=== PATIENT | male | born 1950 | race Caucasian/White ===

== ENCOUNTER 2018-01-19 21:28 | Emergency (ER) | payer MEDICARE ==
[~2018-01-19] VITALS: Ht 180.3 cm; Wt 104.3 kg
[~2018-01-19 21:28] MED LIST: LEVO500T69 PO; LRT10T; VITAMIN
--- OUTSIDE RECORDS SUMMARY | 2018-01-19 21:32 | XMS REPORT | Continuity of Care Document ---
Author Author [facility] Organization [facility] Address Unknown Phone Unavailable Allergies Active Description Code Type Severity Reaction Onset Reported/Identified Relationship to Patient Clinical Status Yes ANETHESIA MED ANETHESIA MED Mild N/A 06/30/2008 Medications There is no data. Problems Date Dx Coded Attending Type Code Diagnosis Diagnosed By 02/15/2013 ORIN WHEELER MD Ot 211.3 02/15/2013 ORIN WHEELER MD Ot 455.0 02/15/2013 ORIN WHEELER MD Ot 562.10 02/15/2013 ORIN WHEELER MD Ot V76.51 04/18/2014 Ot 719.06 04/18/2014 Ot 727.51 04/18/2014 Ot 753.6 04/18/2014 Ot 959.7 04/18/2014 Ot E000.8 04/18/2014 Ot E826.1 04/18/2014 ORIN WHEELER MD Ot V72.84 04/19/2014 Ot 719.06 04/19/2014 Ot 727.51 04/19/2014 Ot 753.6 04/19/2014 Ot 959.7 04/19/2014 Ot E000.8 04/19/2014 Ot E826.1 04/19/2014 ORIN WHEELER MD Ot V72.84 04/20/2014 OTHER, UNLISTED Ot 718.17 04/20/2014 OTHER, UNLISTED Ot 719.47 04/20/2014 OTHER, UNLISTED Ot V72.81 04/20/2014 OTHER, UNLISTED Ot 718.17 04/20/2014 OTHER, UNLISTED Ot 719.47 04/20/2014 OTHER, UNLISTED Ot V72.81 05/05/2014 OTHER, UNLISTED Ot 718.17 05/05/2014 OTHER, UNLISTED Ot 719.47 05/05/2014 OTHER, UNLISTED Ot V72.81 04/27/2015 ORIN WHEELER MD Ot V72.84 04/27/2015 OTHER, UNLISTED Ot 718.17 04/27/2015 OTHER, UNLISTED Ot 719.47 04/27/2015 OTHER, UNLISTED Ot V72.81 06/11/2015 OTHER, UNLISTED Ot M25.511 06/11/2015 OTHER, UNLISTED Ot M47.892 06/11/2015 OTHER, UNLISTED Ot M47.894 06/11/2015 OTHER, UNLISTED Ot M54.2 Procedures There is no data. Results There is no data. Encounters ACCT No. Visit Date/Time Discharge Status Pt. Type Provider Facility Loc./Unit Complaint [id number] 04/27/2015 15:42:00 04/27/2015 23:59:59 CLS Outpatient OTHER, UNLISTED [facility] RAD [id number] 09/19/2014 10:25:00 09/19/2014 23:59:59 CLS Preadmit MARIA MILLER MD [facility] REHAB [id number] 04/18/2014 08:34:00 04/18/2014 23:59:59 CLS Outpatient OTHER, UNLISTED [facility] CARD [id number] 02/15/2013 07:15:00 02/15/2013 10:52:00 DIS Outpatient ORIN WHEELER MD [facility] [id number] 02/11/2013 08:17:00 02/11/2013 23:59:59 CLS Outpatient ORIN WHEELER MD [facility] PREOP [id number] 09/25/2009 15:12:00 Document Registration [email or web address] 04/18/2014 08:34:50 ACT Document Registration
--- NOTE | 2018-01-19 21:41 | ED Upper Extremity ---
General Stated Complaint: GOUT Source: patient Exam Limitations: no limitations History of Present Illness Date Seen by Provider: Jan 19, 2018 Time Seen by Provider: 21:39 Initial Comments To ER with left wrist pain. This began earlier today. History of gout that has affected this wrist before. Onset: this afternoon Severity: moderate Pain/Injury Location: left wrist Method of Injury: fell Modifying Factors: Worse With Movement Allergies and Home Medications Allergies Uncoded Allergies: ANETHESIA MED (Allergy, Mild, 06/30/08) Home Medications No Active Prescriptions or Reported Meds Patient Home Medication List Home Medication List Reviewed: Yes Review of Systems Constitutional: see HPI EENTM: see HPI Respiratory: no symptoms reported Cardiovascular: no symptoms reported Genitourinary: no symptoms reported Musculoskeletal: see HPI Skin: no symptoms reported Past Mxxodwn-Meakvd-Ofphpm Hx Patient Social History Recent Foreign Travel: No Contact w/Someone Who Travel: No Immunizations Up To Date Date of Influenza Vaccine: Jan 27, 2013 Physical Exam Vital Signs Vital Signs - First Documented 01/19/18 21:32 Temp 98.5 Pulse 90 Resp 20 B/P (MAP) 129/75 (93) Pulse Ox 97 O2 Delivery Room Air Capillary Refill : Height, Weight, BMI Height: '" Weight: 230lbs. oz. kg; BMI Method: General Appearance: WD/WN, no apparent distress HEENT: PERRL/EOMI, normal ENT inspection Shoulder: normal inspection, non-tender Elbow/Forearm: normal inspection, non-tender, Left Wrist: Yes pain, Yes soft tissue tenderness (erythema), Yes swelling Hand: normal inspection, non-tender Neurologic/Tendon: normal sensation, normal motor functions Neurologic/Psychiatric: alert, normal mood/affect, oriented x 3 Skin: normal color, warm/dry Progress/Results/Core Measures Results/Orders Lab Results Laboratory Tests Test 01/19/18 21:40 Range/Units White Blood Count 12.8 H 4.3-11.0 10^3/uL Red Blood Count 5.22 4.35-5.85 10^6/uL Hemoglobin 15.9 13.3-17.7 G/DL Hematocrit 47 40-54 % Mean Corpuscular Volume 90 80-99 FL Mean Corpuscular Hemoglobin 31 25-34 PG Mean Corpuscular Hemoglobin Concent 34 32-36 G/DL Red Cell Distribution Width 13.0 10.0-14.5 % Platelet Count 229 130-400 10^3/uL Mean Platelet Volume 10.1 7.4-10.4 FL Neutrophils (%) (Auto) 78 H 42-75 % Lymphocytes (%) (Auto) 12 12-44 % Monocytes (%) (Auto) 9 0-12 % Eosinophils (%) (Auto) 1 0-10 % Basophils (%) (Auto) 0 0-10 % Neutrophils # (Auto) 9.9 H 1.8-7.8 X 10^3 Lymphocytes # (Auto) 1.5 1.0-4.0 X 10^3 Monocytes # (Auto) 1.1 H 0.0-1.0 X 10^3 Eosinophils # (Auto) 0.2 0.0-0.3 10^3/uL Basophils # (Auto) 0.0 0.0-0.1 10^3/uL Sodium Level 137 135-145 MMOL/L Potassium Level 4.1 3.6-5.0 MMOL/L Chloride Level 100 98-107 MMOL/L Carbon Dioxide Level 25 21-32 MMOL/L Anion Gap 12 5-14 MMOL/L Blood Urea Nitrogen 21 H 7-18 MG/DL Creatinine 1.23 0.60-1.30 MG/DL Estimat Glomerular Filtration Rate 59 BUN/Creatinine Ratio 17 Glucose Level 136 H 70-105 MG/DL Calcium Level 9.8 8.5-10.1 MG/DL My Orders Orders - LEEANN FULLER APRN Iv Heplock-Insert (Order) (01/19/18 21:36) Cbc With Automated Diff (01/19/18 21:36) Basic Metabolic Panel (01/19/18 21:36) Rx-Hydrocodone/Apap 5-325 Mg (Rx-Vicodin (01/19/18 21:45) Ketorolac Injection (Toradol Injection) (01/19/18 21:45) Uric Acid (01/19/18 22:01) Medications Given in ED Current Medications Medications Dose Ordered Sig/Hugh Route Start Time Stop Time Status Last Admin Dose Admin Acetaminophen/ Hydrocodone Bitart 1 ea Q4H PRN PO 01/19/18 21:45 01/19/18 21:55 1 EA Ketorolac Tromethamine 15 mg ONCE ONCE IVP 01/19/18 21:45 01/19/18 21:46 DC 01/19/18 21:55 15 MG Vital Signs/I&O 01/19/18 21:32 Temp 98.5 Pulse 90 Resp 20 B/P (MAP) 129/75 (93) Pulse Ox 97 O2 Delivery Room Air Departure Communication (Admissions) It is unclear whether this is gout or pseudogout. He will need follow-up with primary care or orthopedics for arthrocentesis of the wrist to evaluate for uric acid crystals or calcium pyrophosphate crystals. Impression Primary Impression: Monoarthritis, not elsewhere classified, left wrist Disposition: HOME, SELF-CARE Condition: Stable Departure-Patient Inst. Decision time for Depature: 21:41 Referrals: ORIN WHEELER MD (PCP) Primary Care Physician Patient Instructions: Gout (DC), Lifestyle Changes to Manage Gout Add. Discharge Instructions: 1. Follow-up with Dr. Wheeler tomorrow. Return to the emergency room for any concerns. 2. Use over the counter Naproxen 500mg (you can buy this off the shelf at [employer] or [employer]) orally twice daily but do not use for more than 2-3 day as this can worsen kidney function. Drink plenty of fluids over the next 2-3 days. Scripts No Active Prescriptions or Reported Meds Copy Copies To 1: ORIN WHEELER MD, PETER J APRN Jan 19, 2018 21:41
[2018-01-19] MEDS ORDERED: KETOROLAC 30 MG/ML VIAL IVP ONE (21:45)
[2018-01-19 21:50] LABS: BASOPHILS % (AUTO) 0 % (0-10); EOSINOPHILS # (AUTO) 0.2 10^3/uL (0.0-0.3); EOSINOPHILS % (AUTO) 1 % (0-10); HEMATOCRIT 47 % (40-54); HEMOGLOBIN 15.9 G/DL (13.3-17.7); LYMPHOCYTES # (AUTO) 1.5 X 10^3 (1.0-4.0); LYMPHOCYTES % (AUTO) 12 % (12-44); MEAN CORPUSCULAR HEMOGLOBIN 31 PG (25-34); MEAN CORPUSCULAR HGB CONC 34 G/DL (32-36); MEAN CORPUSCULAR VOLUME 90 FL (80-99); MEAN PLATELET VOLUME 10.1 FL (7.4-10.4); MONOCYTES # (AUTO) 1.1 X 10^3 (0.0-1.0); MONOCYTES % (AUTO) 9 % (0-12); NEUTROPHILS # (AUTO) 9.9 X 10^3 (1.8-7.8); NEUTROPHILS % (AUTO) 78 % (42-75); PLATELET COUNT 229 10^3/uL (130-400); RED BLOOD COUNT 5.22 10^6/uL (4.35-5.85); WHITE BLOOD COUNT 12.8 10^3/uL (4.3-11.0)
[2018-01-19] MEDS: RX-HYDROCODONE/APAP 5/325 MG #4 TAB PK PO PRN ×2 (21:55→22:28)
[2018-01-19 22:08] LABS: CALCIUM 9.8 MG/DL (8.5-10.1); CREATININE SERUM 1.23 MG/DL (0.60-1.30); POTASSIUM 4.1 MMOL/L (3.6-5.0)
[2018-01-19] MEDS ORDERED: COLCHICINE 0.6 MG (COLCRYS) TABLET PO ONE (22:15)
[2018-01-19 22:38] VITALS: BP 149/95
== END 2018-01-19 22:38 | disposition home or self-care (01) ==
LOC: EDUNIT# 21:28 → ER 21:29
DX: M13.132 Monoarthritis, not elsewhere classified, left wrist (principal); M10.9 Gout, unspecified; W19.XXXA Unspecified fall, initial encounter
CPT/HCPCS: 36415; 80048; 84550; 85025; 96374; 99283

== ENCOUNTER 2018-02-15 02:33 | Emergency (ER) | payer MEDICARE ==
[~2018-02-15] VITALS: Ht 180.3 cm; Wt 108.9 kg
--- OUTSIDE RECORDS SUMMARY | 2018-02-15 02:38 | XMS REPORT | Continuity of Care Document ---
Author Author [facility] Organization [facility] Address Unknown Phone Unavailable Allergies Active Description [...] Ot M47.894 06/11/2015 OTHER, UNLISTED Ot M54.2 01/19/2018 LEEANN FULLER APRN Ot M10.9 GOUT, UNSPECIFIED 01/19/2018 LEEANN FULLER APRN Ot M13.132 MONOARTHRITIS, NOT ELSEWHERE CLASSIFIED, 01/19/2018 LEEANN FULLER APRN Ot M25.532 PAIN IN LEFT WRIST 01/19/2018 LEEANN FULLER APRN Ot W19.XXXA UNSPECIFIED FALL, INITIAL ENCOUNTER 01/21/2018 LEEANN FULLER APRN Ot M10.9 GOUT, UNSPECIFIED 01/21/2018 LEEANN FULLER APRN Ot M13.132 MONOARTHRITIS, NOT ELSEWHERE CLASSIFIED, 01/21/2018 LEEANN FULLER APRN Ot M25.532 PAIN IN LEFT WRIST 01/21/2018 LEEANN FULLER APRN Ot W19.XXXA UNSPECIFIED FALL, INITIAL ENCOUNTER Procedures There is no data. Results Test Result Range Complete blood count (CBC) with automated white blood cell (WBC) differential - 01/19/18 21:40 Blood leukocytes automated count (number/volume) 12.8 10*3/uL 4.3-11.0 Blood erythrocytes automated count (number/volume) 5.22 10*6/uL 4.35-5.85 Venous blood hemoglobin measurement (mass/volume) 15.9 g/dL 13.3-17.7 Blood hematocrit (volume fraction) 47 % 40-54 Automated erythrocyte mean corpuscular volume 90 [foz_us] 80-99 Automated erythrocyte mean corpuscular hemoglobin (mass per erythrocyte) 31 pg 25-34 Automated erythrocyte mean corpuscular hemoglobin concentration measurement ( mass/volume) 34 g/dL 32-36 Automated erythrocyte distribution width ratio 13.0 % 10.0-14.5 Automated blood platelet count (count/volume) 229 10*3/uL 130-400 Automated blood platelet mean volume measurement 10.1 [foz_us] 7.4-10.4 Automated blood neutrophils/100 leukocytes 78 % 42-75 Automated blood lymphocytes/100 leukocytes 12 % 12-44 Blood monocytes/100 leukocytes 9 % 0-12 Automated blood eosinophils/100 leukocytes 1 % 0-10 Automated blood basophils/100 leukocytes 0 % 0-10 Blood neutrophils automated count (number/volume) 9.9 10*3 1.8-7.8 Blood lymphocytes automated count (number/volume) 1.5 10*3 1.0-4.0 Blood monocytes automated count (number/volume) 1.1 10*3 0.0-1.0 Automated eosinophil count 0.2 10*3/uL 0.0-0.3 Automated blood basophil count (count/volume) 0.0 10*3/uL 0.0-0.1 Whole blood basic metabolic panel - 01/19/18 21:40 Serum or plasma sodium measurement (moles/volume) 137 mmol/L 135-145 Serum or plasma potassium measurement (moles/volume) 4.1 mmol/L 3.6-5.0 Serum or plasma chloride measurement (moles/volume) 100 mmol/L 98-107 Carbon dioxide 25 mmol/L 21-32 Serum or plasma anion gap determination (moles/volume) 12 mmol/L 5-14 Serum or plasma urea nitrogen measurement (mass/volume) 21 mg/dL 7-18 Serum or plasma creatinine measurement (mass/volume) 1.23 mg/dL 0.60-1.30 Serum or plasma urea nitrogen/creatinine mass ratio 17 NRG Serum or plasma creatinine measurement with calculation of estimated glomerular filtration rate 59 NRG Serum or plasma glucose measurement (mass/volume) 136 mg/dL 70-105 Serum or plasma calcium measurement (mass/volume) 9.8 mg/dL 8.5-10.1 Serum or plasma uric acid measurement (mass/volume) - 01/19/18 21:40 Serum or plasma uric acid measurement (mass/volume) 6.7 mg/dL 2.6-7.2 Encounters ACCT No. Visit Date/Time Discharge Status Pt. Type Provider Facility Loc./Unit Complaint [id number] 01/19/2018 21:29:00 01/19/2018 22:38:00 DIS Emergency LEEANN FULLER APRN [facility] ER GOUT [id number] 04/27/2015 15:42:00 04/27/2015 23:59:59 CLS Outpatient OTHER, UNLISTED [facility] RAD [id number] 09/19/2014 10:25:00 09/19/2014 23:59:59 CLS Preadmit MARIA MILLER MD [facility] REHAB [id number] 04/18/2014 08:34:00 04/18/2014 23:59:59 CLS Outpatient OTHER, UNLISTED [facility] CARD [id number] 02/15/2013 07:15:00 02/15/2013 10:52:00 DIS Outpatient [facility] [id number] 02/11/2013 08:17:00 02/11/2013 23:59:59 CLS Outpatient ORIN WHEELER MD [facility] PREOP [id number] 02/26/2018 07:30:00 PEN Preadmit ORIN WHEELER MD [facility] ENDO RECTAL BLEEDING [id number] 09/25/2009 15:12:00 Document Registration [email or web address] 04/18/2014 08:34:50 ACT Document Registration
[2018-02-15] MEDS ORDERED: COLCHICINE 0.6 MG (COLCRYS) TABLET PO ONE (03:00)
[2018-02-15] MEDS ORDERED: PRD10T PO (03:27)
[2018-02-15] MEDS ORDERED: COLC0.6C3 PO (03:27)
[2018-02-15] MEDS ORDERED: ACHD5005 PO (03:27)
--- NOTE | 2018-02-15 03:27 | ED Upper Extremity ---
General Chief Complaint: General Problems/Pain Stated Complaint: GOUT Nursing Triage Note: AMBULATORY TO ED WITH C/O LEFT WRIST PAIN R/T GOUT. LAST SEEN HERE TWO WEEKS AGO. SAW DR. WHEELER, CHANGED DIET. NOW PAIN PAIN BACK AND WOKE HIM UP IN THE MIDDLE OF THE NIGHT. Nursing Sepsis Screen: No Definite Risk Source: patient History of Present Illness Date Seen by Provider: Feb 15, 2018 Time Seen by Provider: 02:45 Initial Comments C/O LEFT WRIST PAIN AND SWELLING FOR THE LAST FEW DAYS STATES HE IS HAVING A FLARE UP OF HIS GOUT WAS SEEN HERE 01/19/18 FOR THIS SAME PROBLEM AND WAS GIVEN COLCHICINE AND SYMPTOMS WENT AWAY COMPLETELY. FOLLOWED UP WITH DR. WHEELER AFTER THAT VISIT AND NO FURTHER TREATMENT WAS NEEDED STATES HIS FIRST HAD GOUT MANY YEARS AGO, BUT HAS NOT HAD ANY SIGNIFICANT PROBLEMS UNTIL THE LAST FEW WEEKS STATES WHEN HE WAS HERE BEFORE IT WAS MUCH WORSE --MORE PAIN, MORE SWELLING PT STATES PAIN WOKE HIM UP AT 0030 THIS AM HAS NOT TAKEN ANYTHING FOR PAIN AT ANY TIME STATES HE HAS BEEN INCREASING HIS WATER INTAKE AND WATCHING HIS DIET--NO RED MEATS., ETC. NO UNUSUAL ACTIVITIES OR INJURIES BUT PT LIFTS BOXES/OBJECTS ALL DAY FOR WORK. NO PARESTHESIAS OR MOTOR DEFICITS PT IS RIGHT HANDED. PCP: DR. WHEELER Allergies and Home Medications Allergies Uncoded Allergies: ANETHESIA MED (Allergy, Mild, 06/30/08) Home Medications Colchicine 0.6 Mg Capsule, 0.6 MG PO UD Prescribed by: CARMELA ALBRIGHT on 02/15/18326 Hydrocodone Bit/Acetaminophen 1 Tab Tab, 1-2 EACH PO Q6H PRN for PAIN-MODERATE Prescribed by: CARMELA ALBRIGHT on 02/15/18326 Prednisone 10 Mg Tab, 40 MG PO DAILY Prescribed by: CARMELA ALBRIGHT on 02/15/18326 Patient Home Medication List Home Medication List Reviewed: Yes Review of Systems Constitutional: no symptoms reported Respiratory: no symptoms reported Cardiovascular: no symptoms reported Musculoskeletal: see HPI Skin: no symptoms reported Psychiatric/Neurological: No Symptoms Reported Past Zbwhrdw-Dasiqx-Ckyyvg Hx Patient Social History Alcohol Use: Denies Use Recreational Drug Use: No Smoking Status: Never a Smoker 2nd Hand Smoke Exposure: No Recent Foreign Travel: No Contact w/Someone Who Travel: No Recent Infectious Disease Expo: No Recent Hopitalizations: No Immunizations Up To Date Date of Influenza Vaccine: Feb 01, 2018 Seasonal Allergies Seasonal Allergies: No Past Medical History Surgeries: Yes (Bilateral Knee Replacement, R ankle repair) Appendectomy, Joint Replacement, Orthopedic Respiratory: No Cardiac: Yes Deep Vein Thrombosis Neurological: No Genitourinary: No Gastrointestinal: No Musculoskeletal: Yes Fractures, Gout Endocrine: No HEENT: No Cancer: No Psychosocial: No Integumentary: No Blood Disorders: No Physical Exam Vital Signs Vital Signs - First Documented 02/15/18 02:40 Temp 96.7 Pulse 85 Resp 14 B/P (MAP) 149/117 (128) Capillary Refill : Less Than 3 Seconds Height, Weight, BMI Height: 5'11.00" Weight: 240lbs. oz. 108.177719ph; BMI Method:Stated General Appearance: WD/WN, no apparent distress, other (ARRIVES WEARING A VELCRO WRIST SPLINT--IS VERY TIGHT ON WRIST AND HAND WITH SOME COOLNESS AND PALENESS TO FINGERS--QUICK RETURN OF PINK COLOR/GOOD CAPILLARY REFILL AND WARMTH WITH REMOVAL OF SPLINT. ) Shoulder: non-tender Elbow/Forearm: non-tender Wrist: Yes bone tenderness (AT WRIST), Yes limited ROM (AT WRIST ), Yes pain, Yes soft tissue tenderness, Yes swelling (AND MILD ERYTHEMA TO LEFT WRIST AND HAND. ) Hand: Left, swelling Neurologic/Tendon: normal sensation, normal motor functions, normal tendon functions Neurologic/Psychiatric: yarn examiner skeins II-XII nml as tested, no motor/sensory deficits, alert, normal mood/affect, oriented x 3 Skin: normal color, warm/dry, other (ERYTHEMA TO LEFT HAND AND WRIST NOTED ABOVE) DISTAL MOTOR/SENSORY/VASCULAR INTACT Progress/Results/Core Measures Results/Orders My Orders Orders - CARMELA ALBRIGHT DO Wrist, Left, 3 Views Or More (02/15/18 02:58) Colchicine Tablet (Colcrys Tablet) (02/15/18 03:00) Prednisone Tablet (Deltasone Tablet) (02/15/18 03:30) Medications Given in ED Current Medications Medications Dose Ordered Sig/Hugh Route Start Time Stop Time Status Last Admin Dose Admin Colchicine 1.2 mg ONCE ONCE PO 02/15/18 03:00 02/15/18 03:01 DC 02/15/18 03:18 1.2 MG Vital Signs/I&O 02/15/18 02:40 Temp 96.7 Pulse 85 Resp 14 B/P (MAP) 149/117 (128) Blood Pressure Mean: 128 Progress Progress Note : Progress Note OFFERED PAIN MEDICATIONS, AND PT STATES HE DOES NOT NEED THEM, JUST WANTS COLCHICINE. AGREES TO PREDNISONE AND RX FOR PAIN MEDICATIONS IF NEEDED. Diagnostic Imaging Comments XRAYS LEFT WRIST--DEGENERATIVE CHANGES TO WRIST JOINTS, PENDING RADIOLOGIST REVIEW Reviewed: Reviewed by Me Departure Impression Primary Impression: gout flare left wrist Disposition: HOME, SELF-CARE Condition: Stable Departure-Patient Inst. Referrals: ORIN WHEELER MD (PCP/Family) Primary Care Physician Patient Instructions: Gout (DC), Lifestyle Changes to Manage Gout Add. Discharge Instructions: LOTS OF WATER LOW PURINE DIET WEAR SPLINT NEEDED FOR COMFORT--WIGGLE FINGERS FREQUENTLY ICE TO AREA AT 20 MINUTE INTERVALS FOLLOW UP WITH DR. WHEELER IN 2-3 DAYS IF NO BETTER All discharge instructions reviewed with patient and/or family. Voiced understanding. Scripts Hydrocodone Bit/Acetaminophen (Hydrocodone/Acetaminophen 5/325mg Tablet) 1 Tab Tab 1-2 EACH PO Q6H PRN for PAIN-MODERATE MDD 10, #10 TAB Prov: CARMELA ALBRIGHT DO 02/15/18 Prednisone (Prednisone) 10 Mg Tab 40 MG PO DAILY, #12 TAB Prov: CARMELA ALBRIGHT DO 02/15/18 Colchicine (Colchicine) 0.6 Mg Capsule 0.6 MG PO UD, #10 CAP Prov: CARMELA ALBRIGHT DO 02/15/18 CARMELA ALBRIGHT DO Feb 15, 2018 03:27
[2018-02-15] MEDS ORDERED: predniSONE 20 MG TAB PO ONE (03:30)
[2018-02-15 03:48] VITALS: BP 149/117
--- NOTE | 2018-02-15 07:20 | Diagnostic Imaging Report ---
EXAMINATION: Left wrist, 3 views. COMPARISON: None. HISTORY: 67-year-old male, left wrist pain for 2 weeks. History of gout. FINDINGS: There is moderate to severe radiocarpal joint space loss. There is chondrocalcinosis in the region of the triangular fibrocartilage complex. There is moderate to severe joint space loss at the first carpometacarpal joint. There is joint space loss with small hook osteophytes at the second and third metacarpophalangeal joints with chondrocalcinosis adjacent to these articulations. There is no identified acute fracture. There is no radiopaque foreign body. Bone mineralization appears to be within normal limits. There is no identified bone erosion. IMPRESSION: 1. Chondrocalcinosis with moderate arthritis at the second and third metacarpophalangeal joints demonstrating hooked osteophytes. 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 2. 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 3. Moderate to severe radiocarpal arthritis. Dictated by: Dictated on workstation # [id number]
== END 2018-02-15 03:48 | disposition home or self-care (01) ==
LOC: EDUNIT# 02:33 → ER 02:35
DX: M10.9 Gout, unspecified (principal); Z88.4 Allergy status to anesthetic agent; Z79.52 Long term (current) use of systemic steroids; Z96.653 Presence of artificial knee joint, bilateral; Z90.49 Acquired absence of other specified parts of digestive tract; Z86.718 Personal history of other venous thrombosis and embolism
CPT/HCPCS: 73110

== ENCOUNTER 2018-02-19 05:29 | Emergency (ER) | payer MEDICARE ==
[~2018-02-19] VITALS: Ht 180.3 cm; Wt 108.9 kg
[~2018-02-19 05:29] MED LIST changes: +ACHD5005 PO; +COLC0.6C3 PO; +PRD10T PO
--- OUTSIDE RECORDS SUMMARY | 2018-02-19 05:36 | XMS REPORT | Continuity of Care Document ---
Author Author [facility] Organization [facility] Address Unknown Phone Unavailable Allergies Active [...] APRN Ot W19.XXXA UNSPECIFIED FALL, INITIAL ENCOUNTER 02/15/2018 CARMELA ALBRIGHT DO Ot M10.9 GOUT, UNSPECIFIED 02/15/2018 CARMELA ALBRIGHT DO Ot M25.432 EFFUSION, LEFT WRIST 02/15/2018 CARMELA ALBRIGHT DO Ot Z79.52 HALFWAY (CURRENT) USE OF SYSTEMIC STER 02/15/2018 CARMELA ALBRIGHT DO Ot Z86.718 PERSONAL HISTORY OF OTHER VENOUS THROMBO 02/15/2018 CARMELA ALBRIGHT DO Ot Z88.4 ALLERGY STATUS TO ANESTHETIC AGENT STATU 02/15/2018 CARMELA ALBRIGHT DO Ot Z90.49 ACQUIRED ABSENCE OF OTHER SPECIFIED PART 02/15/2018 CARMELA ALBRIGHT DO Ot Z96.653 PRESENCE OF ARTIFICIAL KNEE JOINT, BILAT 02/18/2018 CARMELA ALBRIGHT DO Ot M10.9 GOUT, UNSPECIFIED 02/18/2018 CARMELA ALBRIGHT DO Ot M25.432 EFFUSION, LEFT WRIST 02/18/2018 CARMELA ALBRIGHT DO Ot Z79.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 Results Test [...] Status Pt. Type Provider Facility Loc./Unit Complaint [id number] 02/15/2018 02:35:00 02/15/2018 03:48:00 DIS Emergency CARMELA ALBRIGHT DO [facility] ER GOUT [id number] 01/19/2018 21:29:00 01/19/2018 22:38:00 DIS Emergency LEEANN FULLER APRN [facility] ER GOUT [id number] 04/27/2015 15:42:00 04/27/2015 23:59:59 CLS Outpatient OTHER, UNLISTED [facility] RAD [id number] 09/19/2014 10:25:00 09/19/2014 23:59:59 CLS Preadmit PAUL MIRELES, MARIA Strickland [facility] REHAB [id number] 04/18/2014 08:34:00 04/18/2014 23:59:59 CLS Outpatient OTHER, UNLISTED [facility] CARD [id number] 02/15/2013 07:15:00 02/15/2013 10:52:00 DIS Outpatient ORIN WHEELER MD [facility] SDC [id number] 02/11/2013 08:17:00 02/11/2013 23:59:59 CLS Outpatient ORIN WHEELER MD [facility] PREOP [id number] 02/26/2018 07:30:00 PEN Preadmit ORIN WHEELER MD [facility] ENDO RECTAL BLEEDING [id number] 02/19/2018 05:30:00 ACT Emergency ROSELINE ROLON MD [facility] ER DRY RT EYE [id number] 02/18/2018 05:42:00 ACT Outpatient ORIN WHEELER MD [facility] PREOP COLONOSCOPY [id number] 09/25/2009 15:12:00 Document Registration [email or web address] 04/18/2014 08:34:50 ACT Document Registration
[2018-02-19] MEDS ORDERED: FLUORESCEIN (FLUOR-I-STRIPS) 1 MG STRP ONE (05:49)
[2018-02-19] MEDS ORDERED: TETRACAINE 0.5% OPHTH SOLN 4 ML BTL (SINGLE DOSE ONLY) ONE (05:49)
--- NOTE | 2018-02-19 05:59 | ED EENT ---
History of Present Illness General Chief Complaint: Eye Problems Stated Complaint: DRY RT EYE Source: patient Exam Limitations: no limitations (ROSELINE JON) History of Present Illness Date Seen by Provider: Feb 19, 2018 Time Seen by Provider: 05:46 Initial Comments Patient presents to ER by private conveyance with chief complaint of right eye burning pain sharp stinging at times this started up late last night. He gets some lubricating eyedrops put those in and that only made it worse. Painful to open his eyelids. Does not necessarily hurt his eyes to look at the overhead lights. No history of glaucoma or other eye problems. 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 Does not feel like her something in his eye. No pus just lots of watering. He has a allergy to penicillin. No fevers nausea chills diarrhea or vomiting. (ROSELINE JON) Allergies and Home Medications Allergies Uncoded Allergies: ANETHESIA MED (Allergy, Mild, 06/30/08) Home Medications Colchicine 0.6 Mg Capsule, 0.6 MG PO UD Prescribed by: CARMELA ALBRIGHT on 02/15/18326 Hydrocodone Bit/Acetaminophen 1 Tab Tab, 1-2 EACH PO Q6H PRN for PAIN-MODERATE Prescribed by: CARMELA ALBRIGHT on 02/15/18326 Prednisone 10 Mg Tab, 40 MG PO DAILY Prescribed by: CARMELA ALBRIGHT on 02/15/18326 Patient Home Medication List Home Medication List Reviewed: Yes (ROSELINE JON) Review of Systems Review of Systems Constitutional: No chills Eyes: Denies Blindness; Blurred Vision, Drainage (clear); Denies Foreign Body Sensation; Inflammation, Pain; Denies Photophobia, Denies Contact Lenses; Glasses Ears: Denies Dizziness, Denies Pain Nose: denies clots, denies congestion Mouth: denies clots, denies loose teeth Throat: denies pain, denies swelling Respiratory: No cough, No short of breath Cardiovascular: No chest pain, No edema (ROSELINE JON) Past Qhgmowz-Qctwhn-Dyhesl Hx Patient Social History Alcohol Use: Denies Use Recreational Drug Use: No 2nd Hand Smoke Exposure: No Recent Foreign Travel: No Contact w/Someone Who Travel: No Recent Hopitalizations: No (ROSELINE JON) Immunizations Up To Date Date of Influenza Vaccine: Feb 01, 2018 (ROSELINE JON) Seasonal Allergies Seasonal Allergies: No (ROSELINE JON) Past Medical History Surgeries: Yes (Bilateral Knee Replacement, R ankle repair) Appendectomy, Joint Replacement, Orthopedic Respiratory: No Cardiac: Yes Deep Vein Thrombosis Neurological: No Genitourinary: No Gastrointestinal: No Musculoskeletal: Yes Fractures, Gout Endocrine: No HEENT: No Cancer: No Psychosocial: No Integumentary: No Blood Disorders: No (ROSELINE JON) Physical Exam Vital Signs Vital Signs - First Documented 02/19/18 05:41 Temp 97.7 Pulse 81 Resp 14 B/P (MAP) 158/107 (124) Pulse Ox 95 O2 Delivery Room Air (RADHA JOYCE MD) Height, Weight, BMI Height: 5'11.00" Weight: 240lbs. oz. 108.763153hu; BMI Method:Stated General Appearance: WD/WN, mild distress Eyes: right eye other (eyelids are erythematous swollen without any evidence of blepharitis or chalazion. Very tender to palpation or manipulation of the eyelids.); left eye normal inspection, left eye PERRL Ears: bilateral ear auricle normal, bilateral ear canal normal, bilateral ear TM normal Nose: normal inspection; No discharge Mouth/Throat: normal mouth inspection, pharynx normal Neck: non-tender, full range of motion, supple, normal inspection Cardiovascular: normal peripheral pulses, regular rate, rhythm (ROSELINE JON) Eyes: right eye other (eyelids are erythematous swollen without any evidence of blepharitis or chalazion. Very tender to palpation or manipulation of the eyelids. Floor seen staining of the right eye shows a mobile skin flap that is figueroa shaped and approximately 5 mm that is over the pupil and central and appears to be attached at the lower portion.) (RADHA JOYCE MD) Progress/Results/Core Measures Results/Orders Medications Given in ED Current Medications Medications Dose Ordered Sig/Hugh Route Start Time Stop Time Status Last Admin Dose Admin Fluorescein Sodium 1 mg ONCE ONCE OU 02/19/18 06:00 02/19/18 06:01 DC 02/19/18 05:56 1 MG Tetracaine HCl 4 ml ONCE ONCE OU 02/19/18 06:00 02/19/18 06:01 DC 02/19/18 05:56 4 ML (RADHA JOYCE MD) Vital Signs/I&O 02/19/18 05:41 Temp 97.7 Pulse 81 Resp 14 B/P (MAP) 158/107 (124) Pulse Ox 95 O2 Delivery Room Air (RADHA JOYCE MD) Progress Progress Note : Time: 05:59 Progress Note Put 3 drops of tetracaine and we'll let it set up for doing a more thorough eye exam. (ROSELINE JON) Progress Note : Progress Note Assumed care from Dr. Jon. 0630: Skin flap noted. I did discuss the case with Dr. Aguilar. He would like to see the patient in office at 0740 this morning. Recommending eyepatch currently. This will be placed. Discharged home with return precautions. Patient verbalize understanding instructions and agreement with plan. (RADHA JOYCE MD) Transfer of Care Time: 06:00 Care transferred to: ROSELINE Bazan) Departure Impression Primary Impression: Corneal abrasion Qualified Codes: S05.01XA - Injury of conjunctiva and corneal abrasion without foreign body, right eye, initial encounter Disposition: HOME, SELF-CARE Condition: Stable Departure-Patient Inst. Decision time for Depature: 06:38 (RADHA JOYCE MD) Referrals: ORIN WHEELER MD (PCP/Family) Primary Care Physician EVELIA AGUILAR OD Patient Instructions: Corneal Abrasion (DC) Add. Discharge Instructions: All discharge instructions reviewed with patient and/or family. Voiced understanding. Please follow-up with Dr. Aguilar at 0740 at his office on [facility]. Keep eye patch on until you are seen by him. You may take 2 extra strength Tylenol/acetaminophen this morning when you get home to help with your pain. Return for other concerns as needed. Copy Copies To 1: EVELIA AGUILAR OD, TITUS J Feb 19, 2018 05:59 RADHA JOYCE MD Feb 19, 2018 06:38
[2018-02-19] MEDS ORDERED: FLUORESCEIN (FLUOR-I-STRIPS) 1 MG STRP OU ONE (06:00)
[2018-02-19] MEDS ORDERED: TETRACAINE 0.5% OPHTH SOLN 4 ML BTL (SINGLE DOSE ONLY) OU ONE (06:00)
[2018-02-19 06:50] VITALS: BP 158/107
[2018-02-23] MEDS ORDERED: DOXY100T2 PO (16:04)
[2018-02-23] MEDS ORDERED: ALLO100T PO (16:04)
== END 2018-02-19 06:52 | disposition home or self-care (01) ==
LOC: EDUNIT# 05:29 → ER 05:30
DX: S05.01XA Injury of conjunctiva and corneal abrasion without foreign body, right eye, initial encounter (principal); M10.9 Gout, unspecified; Z88.4 Allergy status to anesthetic agent; Z79.52 Long term (current) use of systemic steroids; Z96.653 Presence of artificial knee joint, bilateral; Z90.49 Acquired absence of other specified parts of digestive tract; Z86.718 Personal history of other venous thrombosis and embolism; X58.XXXA Exposure to other specified factors, initial encounter
CPT/HCPCS: 99282

== ENCOUNTER 2018-02-23 16:09 | Outpatient (CLI) | payer MEDICARE ==
[~2018-02-23] VITALS: Ht 180.3 cm; Wt 108.9 kg
[~2018-02-23 16:09] MED LIST changes: +ALLO100T PO; +DOXY100T2 PO
== END 2018-02-23 16:10 ==
LOC: PREOP 16:09
PROVIDERS: ATTEND Internal Medicine
DX: Z01.818 Encounter for other preprocedural examination (principal)

== ENCOUNTER 2018-02-26 07:11 | Day surgery (SDC) | payer MEDICARE ==
--- NOTE | 2018-02-11 06:03 | HISTORY AND PHYSICAL ---
DATE OF SERVICE: COLONOSCOPY HISTORY AND PHYSICAL HISTORY OF PRESENT ILLNESS: The patient is a 67-year-old white male, who was seen in the office on 02/04/2018 for multiple medical issues. He has had a sensation of rectal pressure and 2 days ago noted bright red blood per rectum. It was non-painless. He had undergone one of the colonoscopy in the past in 2003. He had one tubular adenoma, diminutive, removed at that time with no other significant abnormalities. On 01/19/2018, he presented to the emergency room with rather rapid increase in swelling and pain involving his left wrist. He has a past history of gout, but it had been several years since his last attack. He was given ketorolac and colchicine 0.6 mg. It was repeated several hours later and by the following day, he had significant improvement in resolution within 48 hours of pain and swelling. His white count was mildly elevated at 12.8. Other blood tests were unremarkable. Uric acid level was drawn at the time of an acute attack and was 6.7. The remainder of his CBC was unremarkable with no abnormalities on his chemistry panel other than mild elevation in blood sugar nonfasting at 136. The patient reports after eight weeks he finally got along over cough. He was still having some popping in the left ear and some cerumen noted on several occasions from the left side. The right ear still feels plugged. He has had no abdominal pain, weight loss, indigestion or change in bowel habit, other than an episode of diarrhea that resolved around the time of his rectal bleeding 2 days ago. No melena has been noted. PHYSICAL EXAMINATION: GENERAL: Reveals a pleasant white male in no acute distress. VITAL SIGNS: Blood pressure 140/88 with a heart rate in the 70s and regular. HEENT: Examination is unremarkable. Sclerae nonicteric. He had a small area of erythema just measuring 1 mm or 2 in the middle of the left tympanic membrane. There is no evidence for effusion. The ear canal was unremarkable with minimal amount of cerumen on the left. The right side was occluded with cerumen. Ear lavage was performed and ultimately, tweezers had to be used for removal of skin and large wax plug with normal TMs and ear canals post procedure. NECK: Revealed no JVD, adenopathy or bruits. CHEST: Clear to auscultation. CARDIOVASCULAR: Reveals regular rate and rhythm without murmur, S3 or S4. ABDOMEN: Soft, supple without mass, organomegaly or tenderness. EXTREMITIES: Reveal no cyanosis, clubbing or edema. ASSESSMENT AND PLAN: 1. Likely acute gout, presenting as inflammatory left wrist arthritis. It happens albeit rarely. I discussed the importance of just utilizing higher dose Aleve at home 2 tabs b.i.d. and if attacks are happening more frequently, we will need to discuss urate lowering therapy. He does not drink alcohol. 2. Bright red blood per rectum. The patient is set up for diagnostic colonoscopy on . Prep instructions were given and questions were answered. 3. Resolving URI with right-sided cerumen impaction, resolved post ear lavage and removal of a large plug via tweezers from the right ear. We will have the patient keep his regular followup appointment, which is scheduled in four months, otherwise. Job ID: [id number] DocumentID: [id number] Dictated Date: 02/04/2018 16:15:22 Storeroom Keeper Date: 02/04/2018 17:44:25 Dictated By: ORIN WHEELER MD
[~2018-02-26] VITALS: Ht 180.3 cm; Wt 108.9 kg
[2018-02-26] MEDS ORDERED: D5 LR IV SOLUTION 1,000 ML IV STA (07:20)
[2018-02-26] MEDS ORDERED: D5 LR IV SOLUTION 1,000 ML IV ONE (07:22)
[2018-02-26] MEDS ORDERED: fentaNYL INJECTION 100 MCG/2 ML AMP IVP ONE (07:30)
[2018-02-26] MEDS ORDERED: LIDOCAINE JELLY 2% 6 ML SYRINGE MM PRN (07:30)
[2018-02-26] MEDS ORDERED: MIDAZOLAM 2 MG/2 ML (VERSED) VIAL IVP ONE (07:30)
[2018-02-26] MEDS ORDERED: LIDOCAINE JELLY 2% 6 ML SYRINGE ONE (07:38)
[2018-02-26] MEDS ORDERED: MIDAZOLAM 2 MG/2 ML (VERSED) VIAL ONE ×2 (07:38→08:12)
[2018-02-26] MEDS ORDERED: fentaNYL INJECTION 100 MCG/2 ML AMP ONE (07:38)
[2018-02-26 08:01] VITALS: BP 119/90
[2018-02-26 08:50] VITALS: BP 124/74
--- OUTSIDE RECORDS SUMMARY | 2018-02-26 09:13 | XMS REPORT | Continuity of Care Document ---
Author Author [facility] Organization [facility] Address Unknown Phone Unavailable Allergies Active Description Code Type Severity Reaction Onset Reported/Identified Relationship to Patient Clinical Status Yes ANETHESIA MED ANETHESIA MED Mild N/A 06/30/2008 Yes Penicillins [id number] Drug Allergy Unknown HIVES 02/23/2018 Medications There is no data. Problems Date [...] 719.47 05/05/2014 OTHER, UNLISTED Ot V72.81 04/27/2015 LIAM MIRELES, ORIN Verma Ot V72.84 04/27/2015 OTHER, UNLISTED Ot 718.17 [...] WRIST 02/15/2018 CARMELA ALBRIGHT DO Ot Z79.52 GROUP HOME (CURRENT) USE OF SYSTEMIC STER 02/15/2018 CARMELA ALBRIGHT DO Ot Z86.718 PERSONAL HISTORY OF OTHER VENOUS THROMBO 02/15/2018 CARMELA ALBRIGHT DO Ot Z88.4 ALLERGY STATUS TO ANESTHETIC AGENT STATU 02/15/2018 CARMELA ALBRIGHT DO Ot Z90.49 ACQUIRED ABSENCE OF OTHER SPECIFIED PART 02/15/2018 CARMELA ALBRIGHT DO Ot Z96.653 PRESENCE OF ARTIFICIAL KNEE JOINT, BILAT 02/18/2018 CARMELA ALBRIGHT DO Ot M10.9 GOUT, UNSPECIFIED 02/18/2018 JOSE RAMON DO, CARMELA K Ot M25.432 EFFUSION, LEFT WRIST 02/18/2018 JOSE RAMON ALLEN SHERIFFA K Ot Z79.52 GROUP HOME (CURRENT) USE OF SYSTEMIC STER 02/18/2018 JOSE RAMON ALLEN SHERIFFA K Ot Z86.718 PERSONAL HISTORY OF OTHER VENOUS THROMBO 02/18/2018 JOSE RAMON ALLEN SHERIFFA K Ot Z88.4 ALLERGY STATUS TO ANESTHETIC AGENT STATU 02/18/2018 JOSE RAMON ALLEN SHERIFFA K Ot Z90.49 ACQUIRED ABSENCE OF OTHER SPECIFIED PART 02/18/2018 JOSE RAMON DOALLENA K Ot Z96.653 PRESENCE OF ARTIFICIAL KNEE JOINT, BILAT 02/21/2018 JOSE RAMON ALLEN SHERIFFA K Ot M10.9 GOUT, UNSPECIFIED 02/21/2018 JOSE RAMON CARMELA SHERIFF K Ot M25.432 EFFUSION, LEFT WRIST 02/21/2018 JOSE RAMON ALLEN SHERIFFA K Ot Z79.52 GROUP HOME (CURRENT) USE OF SYSTEMIC STER 02/21/2018 JOSE RAMON ALLEN SHERIFFA K Ot Z86.718 PERSONAL HISTORY OF OTHER VENOUS THROMBO 02/21/2018 JOSE RAMON CARMELA SHERIFF K Ot Z88.4 ALLERGY STATUS TO ANESTHETIC AGENT STATU 02/21/2018 JOSE RAMON ALLEN SHERIFFA K Ot Z90.49 ACQUIRED ABSENCE OF OTHER SPECIFIED PART 02/21/2018 JOSE RAMON ALLEN SHERIFFA K Ot Z96.653 PRESENCE OF ARTIFICIAL KNEE JOINT, BILAT 02/22/2018 RADHA JOYCE MD Ot H57.11 OCULAR PAIN, RIGHT EYE 02/22/2018 RADHA JOYCE MD Ot M10.9 GOUT, UNSPECIFIED 02/22/2018 RADHA JOYCE MD Ot S05.01XA INJ CONJUNCTIVA AND CORNEAL ABRASION W/O 02/22/2018 RADHA JOYCE MD Ot X58.XXXA EXPOSURE TO OTHER SPECIFIED FACTORS, INI 02/22/2018 RADHA JOYCE MD Ot Z79.52 GROUP HOME (CURRENT) USE OF SYSTEMIC STER 02/22/2018 RADHA JOYCE MD Ot Z86.718 PERSONAL HISTORY OF OTHER VENOUS THROMBO 02/22/2018 RADHA JOYCE MD Ot Z88.4 ALLERGY STATUS TO ANESTHETIC AGENT STATU 02/22/2018 RADHA JOYCE MD Ot Z90.49 ACQUIRED ABSENCE OF OTHER SPECIFIED PART 02/22/2018 MARIA DEL CARMEN MIRELES, RADHA Verma Ot Z96.653 PRESENCE OF ARTIFICIAL KNEE JOINT, BILAT 02/22/2018 LIAM MIRELES, ORIN Verma Ot Z01.818 ENCOUNTER FOR OTHER PREPROCEDURAL EXAMIN 02/22/2018 ORIN WHEELER MD Ot Z01.818 ENCOUNTER FOR OTHER PREPROCEDURAL EXAMIN 02/23/2018 ORIN WHEELER MD Ot Z01.818 ENCOUNTER FOR OTHER PREPROCEDURAL EXAMIN Procedures There is no data. Results Test [...] Status Pt. Type Provider Facility Loc./Unit Complaint [id number] 02/23/2018 16:09:00 02/23/2018 16:10:00 DIS Outpatient ORIN WHEELER MD [facility] PREOP COLONOSCOPY [id number] 02/19/2018 05:30:00 02/19/2018 06:52:00 DIS Outpatient RADHA JOYCE MD [facility] ER DRY RT EYE [id number] 02/15/2018 02:35:00 02/15/2018 03:48:00 DIS Outpatient CARMELA ALBRIGHT DO [facility] ER GOUT [id number] 01/19/2018 21:29:00 01/19/2018 22:38:00 DIS Emergency LEEANN FULLER APRN [facility] ER GOUT [id number] 04/27/2015 15:42:00 04/27/2015 23:59:59 CLS Outpatient OTHER, UNLISTED [facility] RAD [id number] 09/19/2014 10:25:00 09/19/2014 23:59:59 CLS Preadmit MARIA MILLER MD [facility] REHAB [id number] 04/18/2014 08:34:00 04/18/2014 23:59:59 CLS Outpatient OTHER, UNLISTED [facility] CARD [id number] 02/15/2013 07:15:00 02/15/2013 10:52:00 DIS Outpatient ORIN WHEELER MD [facility] [id number] 02/11/2013 08:17:00 02/11/2013 23:59:59 CLS Outpatient ORIN WHEELER MD [facility] PREOP [id number] 02/26/2018 07:11:00 ACT Outpatient ORIN WHEELER MD [facility] ENDO RECTAL BLEEDING [id number] 09/25/2009 15:12:00 Document Registration [email or web address] 04/18/2014 08:34:50 ACT Document Registration
--- NOTE | 2018-02-26 09:15 | Pre-Op Note & Conscious Sedat ---
Pre-Operative Progress Note H&P Reviewed The H&P was reviewed, patient examined and no changes noted. Date H&P Reviewed: Feb 26, 2018 Time H&P Reviewed: 07:45 Conscious Sedation Pre-Proced ASA Score 2 For ASA 3 and 4: Consider anesthesia and medical clearance. Also, for patients with a history of failed moderate sedation consider anesthesia. Airway Lungs Heart ASA score ASA 1: a normal healthy patient ASA 2: a patient with a mild systemic disease (mid diabetes, controlled hypertension, obesity ASA 3: a patient with a severe systemic disease that limits activity (angina , COPD, prior Myocardial infarction) ASA 4: a patient with an incapacitating disease that is a constant threat to life (CHF, renal failure) ASA 5: a moribund patient not expected to survive 24 hrs. (ruptured aneurysm) ASA 6: a declared brain patient whose organs are being harvested. For emergent operations, add the letter E after the classification Mallampati Classification Grade 3 Sedation Plan Analgesia, Amnesia, Plan communicated to team members, Discussed options with patient/fam, Discussed risks with patient/fam The patient is an appropriate candidate to undergo the planned procedure, sedation, and anesthesia. The patient immediately re-assessed prior to indication. ORIN WHEELER MD Feb 26, 2018 09:15
[2018-02-26 09:25] VITALS: BP 135/83
[2018-02-26 11:05] VITALS: BP 135/83
--- NOTE | 2018-02-26 23:01 | OPERATIVE REPORT ---
DATE OF SERVICE: COLONOSCOPY SUMMARY INDICATION FOR THE PROCEDURE: Colonoscopy is performed for bright red blood per rectum. The patient was placed in left lateral decubitus position and underwent digital rectal evaluation. Anal sphincter tone was normal and the perianal reflex was intact. The anal canal was unremarkable on digital inspection. Present about 1 to 2 cm above the anal verge was a pedunculated lobular polyp, somewhat firm, but not hard. There was a small amount of blood on the gloved finger. No other abnormalities noted on digital inspection of the anal canal or distal rectal vault. The colonoscope was then inserted into the rectum under direct visualization advanced to cecum. The cecum was identified by identification of the ileocecal valve and cecal strap. Photographic documentation was obtained. Careful inspection was made as the colonoscope was withdrawn. The patient tolerated the procedure well. FINDINGS: There was a large polyp as noted above 1 to 2 cm above the anal verge. It had to be removed in two pieces, the second requiring retroflexion. No pain was reported by the patient with a minimal amount of bleeding, which has ceased during observation. Estimated blood loss in the several mL range. The base was clean. The remainder of the rectum and colonoscopy was unremarkable. No diverticular disease was noted. No other evidence for neoplasia was identified on colonoscopy to the cecum. ASSESSMENT AND PLAN: A large pedunculated adenomatous-appearing polyp was removed in two pieces with good visualization of the base with minimal bleeding. We will need to await histopathology report to see if there is any evidence for malignancy in regards to making surveillance colonoscopy recommendations, but we will not likely advocate longer than one year screening. The polyp was present behind the prostate making digital rectal evaluation of the prostate impossible. We discussed the need to avoid lifting anything over 25 pounds and the need to avoid antiplatelet and blood thinner therapy discussed in layman's terms. Job ID: [id number] DocumentID: [id number] Dictated Date: 02/26/2018 12:21:52 Campaign Director Date: 02/26/2018 23:00:46 Dictated By: MD ABELARDO LADNRY
--- NOTE | 2018-03-04 08:32 | Physician Query-Final Dx ---
TEDDY HARLEY 03/04/18 0832: Clinic Account Progress/Dx Physician Query: Please clarify which method of polypectomy was used ( hot bx, snare, ablation) thank you Date of Service Feb 26, 2018 at 07:11 ORIN WHEELER MD 03/05/18 1220: Clinic Account Progress/Dx DIAGNOSIS: Diagnosis Snare polypectomy TEDDY HARLEY Mar 04, 2018 08:32 ORIN WHEELER MD Mar 05, 2018 12:20
== END 2018-02-26 11:05 | disposition home or self-care (01) ==
LOC: ENDO 07:11
PROVIDERS: ATTEND Internal Medicine
DX: C20 Malignant neoplasm of rectum (principal); K62.5 Hemorrhage of anus and rectum
CPT/HCPCS: 88305; 88341; 88342; 88365

== ENCOUNTER 2018-03-15 06:07 | Outpatient (CLI) | payer MEDICARE ==
[~2018-03-15] VITALS: Ht 180.3 cm; Wt 108.9 kg
== END 2018-03-15 12:12 | disposition home or self-care (01) ==
LOC: PREOP 06:07
PROVIDERS: ATTEND Internal Medicine
DX: Z01.818 Encounter for other preprocedural examination (principal)

== ENCOUNTER → 2018-03-19 | Outpatient (CLI) | payer MEDICARE ==
[~2018-03-19] MED LIST changes: +IOHEXOL 350 MG/ML 100 ML (OMNIPAQUE 350) VIAL IV ONE; +NS 250 ML (IVPB) BAG IV ONE
--- NOTE | 2018-03-19 08:17 | Diagnostic Imaging Report ---
PROCEDURE: CT chest with contrast, CT abdomen and pelvis with and without contrast. TECHNIQUE: Pre and post intravenous contrast axial imaging of the abdomen and pelvis and post contrast axial imaging of the chest were performed. INDICATION: Rectal carcinoma. No prior studies are available for comparison. CT chest: No axillary lymphadenopathy is detected. No definite hilar or mediastinal lymphadenopathy is identified. No pericardial or pleural fluid is identified. No pulmonary infiltrates or masses are seen. There is some elevation of the right hemidiaphragm with atelectasis or scarring in the right middle lobe. IMPRESSION: Essentially unremarkable CT of the chest. There is no evidence of thoracic lymphadenopathy or pulmonary metastatic disease. CT abdomen and pelvis: No discrete liver mass is identified. There is mild generalized low-density throughout the liver suggestive of hepatic steatosis. The gallbladder is unremarkable. No biliary ductal dilatation is seen. The pancreas and spleen are unremarkable. No adrenal mass is detected. The kidneys are unremarkable. The aorta is non-aneurysmal. No central or retroperitoneal or mesenteric lymphadenopathy is seen. The small and large bowel loops are normal caliber. No obstruction is seen. There is no ascites. The bladder and prostate are unremarkable. There is a fat-containing left inguinal hernia. No inguinal or iliac lymphadenopathy is detected. IMPRESSION: 1. Hepatic steatosis. 2. Fat-containing left inguinal hernia. 3. No evidence of abdominal or pelvic mass or metastatic disease. Dictated by: Dictated on workstation # [id number]
== END ==
LOC: RAD 06:51
PROVIDERS: ATTEND Internal Medicine Hematology & Oncology
DX: K76.0 Fatty (change of) liver, not elsewhere classified (principal); K40.90 Unilateral inguinal hernia, without obstruction or gangrene, not specified as recurrent; C20 Malignant neoplasm of rectum
CPT/HCPCS: 71260; 74178

== ENCOUNTER 2018-03-30 13:34 | Outpatient (RCR) | payer MEDICARE ==
[2018-03-16 14:54] LABS: BASOPHILS % (AUTO) 0 % (0-10); EOSINOPHILS # (AUTO) 0.2 10^3/uL (0.0-0.3); EOSINOPHILS % (AUTO) 2 % (0-10); HEMATOCRIT 45 % (40-54); HEMOGLOBIN 15.6 G/DL (13.3-17.7); LYMPHOCYTES # (AUTO) 1.7 X 10^3 (1.0-4.0); LYMPHOCYTES % (AUTO) 25 % (12-44); MEAN CORPUSCULAR HEMOGLOBIN 31 PG (25-34); MEAN CORPUSCULAR HGB CONC 34 G/DL (32-36); MEAN CORPUSCULAR VOLUME 89 FL (80-99); MONOCYTES # (AUTO) 0.5 X 10^3 (0.0-1.0); MONOCYTES % (AUTO) 8 % (0-12); NEUTROPHILS # (AUTO) 4.6 X 10^3 (1.8-7.8); NEUTROPHILS % (AUTO) 65 % (42-75); PLATELET COUNT 204 10^3/uL (130-400); RED CELL DISTRIBUTION WIDTH 13.5 % (10.0-14.5); WHITE BLOOD COUNT 7.1 10^3/uL (4.3-11.0)
[2018-03-16 15:19] LABS: ALANINE AMINOTRANSFERASE 31 U/L (0-55); ALBUMIN 4.4 GM/DL (3.2-4.5); ALKALINE PHOSPHATASE 56 U/L (40-136); BILIRUBIN,TOTAL 1.4 MG/DL (0.1-1.0); BUN/CREATININE RATIO 14; CALCIUM 9.5 MG/DL (8.5-10.1); CARBON DIOXIDE 26 MMOL/L (21-32); CHLORIDE 108 MMOL/L (98-107); CREATININE SERUM 0.98 MG/DL (0.60-1.30); GFR ESTIMATED > 60; GLUCOSE 84 MG/DL (70-105); SODIUM 143 MMOL/L (135-145); TOTAL PROTEIN 6.6 GM/DL (6.4-8.2)
[~2018-03-30 13:34] MED LIST changes: -IOHEXOL 350 MG/ML 100 ML (OMNIPAQUE 350) VIAL IV ONE; -NS 250 ML (IVPB) BAG IV ONE
== END 2018-06-14 | disposition home or self-care (01) ==
LOC: ONC 13:34
PROVIDERS: ATTEND Internal Medicine Hematology & Oncology
DX: C20 Malignant neoplasm of rectum (principal)
CPT/HCPCS: 36415; 80053; 83615; 85025; 99214

== ENCOUNTER 2018-11-18 16:00 | Observation (INO) | payer MEDICARE | END 2018-11-20 14:48 | disposition home or self-care (01) | LOC: 4TH 16:00 ==

== ENCOUNTER 2018-12-06 18:43 | Inpatient (IN) | payer MEDICARE ==
[~2018-12-06] VITALS: Ht 180.3 cm; Wt 101.3 kg
[~2018-12-06 18:43] MED LIST changes: +ACET325T49 PO; +APIX5TAB PO; +CEPH-507 PO; +DIPH25TA31 PO; +DOCU100T2 PO; +LORA10TA7 PO; +MINE15DR4 OP
[2018-12-06] MEDS ORDERED: NS IV 1000 ML 1,000 ML IV SCH ×2 (19:07→20:23)
[2018-12-06 19:15] LABS: BASOPHILS % (AUTO) 0 % (0-10); EOSINOPHILS % (AUTO) 0 % (0-10); HEMATOCRIT 42 % (40-54); HEMOGLOBIN 13.8 G/DL (13.3-17.7); LYMPHOCYTES # (AUTO) 1.4 X 10^3 (1.0-4.0); LYMPHOCYTES % (AUTO) 7 % (12-44); MEAN CORPUSCULAR HEMOGLOBIN 29 PG (25-34); MEAN CORPUSCULAR HGB CONC 33 G/DL (32-36); MEAN CORPUSCULAR VOLUME 86 FL (80-99); MONOCYTES # (AUTO) 2.3 X 10^3 (0.0-1.0); MONOCYTES % (AUTO) 12 % (0-12); NEUTROPHILS # (AUTO) 15.5 X 10^3 (1.8-7.8); NEUTROPHILS % (AUTO) 81 % (42-75); PLATELET COUNT 363 10^3/uL (130-400); RED CELL DISTRIBUTION WIDTH 14.7 % (10.0-14.5); WHITE BLOOD COUNT 19.2 10^3/uL (4.3-11.0)
[2018-12-06 19:28] LABS: INR 1.3 (0.8-1.4); PROTHROMBIN TIME PATIENT 16.8 SEC (12.2-14.7)
[2018-12-06] MEDS ORDERED: ACETAMINOPHEN 500 MG TAB (TYLENOL) PO STA (19:28)
--- NOTE | 2018-12-06 19:33 | ED General ---
General Chief Complaint: Respiratory Problems Stated Complaint: HAND SWOLLEN AND BODY PAIN,SOB Nursing Triage Note: PT TO RM 2 BY WHEELCHAIR WITH COMPLAINT OF SOA, CP, NECK, SHOULDER AND RIB. PT WAS SENT FROM [facility] OFFICE FOR POSSIBLE SEPSIS. PT IS CURRENTLY TAKING IMMUNOTHERAPY FOR RECTALCANCER. PT ALSO HAS DVT IN RIGHT HAND AND HAS BEEN ON ELIQUIS FOR TWO WEEKS. PT STATES HE TOOK LAST IMMUNOTHERAPY TREATMENT ON THURSDAY. STATES SYMPTOMS STARTED TODAY AROUND 1130. Nursing Sepsis Screen: No Definite Risk History of Present Illness Date Seen by Provider: Dec 06, 2018 Time Seen by Provider: 19:15 Initial Comments 68-year-old male presents for fever, generalized weakness, neck and shoulder pain. He is being treated with immunotherapy at for prostate cancer. He had an injection on 12/03/18. Today at 11:30 he began to have symptoms. Timing/Duration: 4-6 Hours Associated Systoms: No Chest Pain, No Cough; Diaphoresis, Fever/Chills; No Headaches, No Loss of Appetite; Malaise; No Nausea/Vomiting, No Rash, No Shortness of Air, No Syncope; Weakness Allergies and Home Medications Allergies Coded Allergies: Penicillins (Verified Allergy, Unknown, HIVES, 11/18/18) cedarwood (Verified Allergy, Unknown, 11/18/18) grass pollen (Verified Allergy, Unknown, 11/18/18) mold (Verified Allergy, Unknown, 11/18/18) unknown Uncoded Allergies: ANETHESIA MED (Allergy, Mild, 06/30/08) Home Medications Acetaminophen 325 Mg Tablet, 650 MG PO Q8H PRN for PAIN-MILD, (Reported) Allopurinol 100 Mg Tablet, 200 MG PO HS, (Reported) Apixaban 5 Mg Tablet, 5 MG PO BID TAKE 2 TABLETS BID X 7 DAYS, THEN 1 TABLET BID Prescribed by: GIOVANI SHEPPARD on 11/20/18 121 Cephalexin 500 Mg Capsule, 500 MG PO TID Prescribed by: GIOVANI SHEPPARD on 11/20/18 121 Diphenhydramine HCl 25 Mg Tablet, 25 MG PO PRN PRN for ALLERGIC REACTIONS, (Reported) Docusate Sodium 100 Mg Tablet, 200 MG PO HS PRN for CONSTIPATION-1ST LINE, (Reported) Loratadine 10 Mg Tablet, 0 MG PO DAILY Prescribed by: GIOVANI SHEPPARD on 11/20/18 1216 Mineral Oil, Light/Mineral Oil 15 Ml Drops, 2 DROPS OP HS PRN for DRY EYES, (Reported) Patient Home Medication List Home Medication List Reviewed: Yes Review of Systems Review of Systems Constitutional: see HPI, chills, fever, malaise, weakness All Other Systems Reviewed Negative Unless Noted: Yes Past Bikhvxc-Egelfn-Bnqbux Hx Past Med/Social Hx: Reviewed Nursing Past Med/Soc Hx Patient Social History Alcohol Use: Denies Use Recreational Drug Use: No Smoking Status: Never a Smoker 2nd Hand Smoke Exposure: No Recent Foreign Travel: No Contact w/Someone Who Travel: No Recent Infectious Disease Expo: No Recent Hopitalizations: No Physical Abuse: No Sexual Abuse: No Mistreated: No Fear: No Immunizations Up To Date Tetanus Booster (TDap): Unknown Date of Pneumonia Vaccine: Feb 01, 2018 Date of Influenza Vaccine: Feb 01, 2018 Seasonal Allergies Seasonal Allergies: Yes Past Medical History Surgeries: Yes (Bilateral Knee Replacement, R ankle repair, bilat bunionectomy) Appendectomy, Joint Replacement, Orthopedic, Tonsillectomy Respiratory: No Currently Using CPAP: No Currently Using BIPAP: No Cardiac: Yes Deep Vein Thrombosis Neurological: No Reproductive Disorders: No Genitourinary: No Gastrointestinal: Yes (rectal bleeding) Musculoskeletal: Yes Arthritis, Fractures, Gout Endocrine: No HEENT: No Cancer: Yes Rectal, Melanoma Did You Recieve Any Treatments: Yes What Type of Treatment Did You: Other Psychosocial: No Integumentary: Yes (recent skin cancer removed from ear) Blood Disorders: No Physical Exam-Suspected Sepsis Physical Exam Vital Signs Vital Signs - First Documented 12/06/18 18:49 Temp 38.9 Pulse 108 Resp 12 B/P (MAP) 146/90 (108) Pulse Ox 95 O2 Delivery Room Air Capillary Refill : Less Than 3 Seconds Blood Pressure Mean: 108 Height, Weight, BMI Height: 5'11.00" Weight: 240lbs. 0.0oz. 108.882364pb; 32.00 BMI Method:Stated General Appearance: No Apparent Distress, WD/WN Eyes: Bilateral Eye Normal Inspection, Bilateral Eye PERRL, Bilateral Eye EOMI HEENT: PERRL/EOMI, TMs Normal, Normal ENT Inspection, Pharynx Normal Neck: Full Range of Motion, Normal Inspection, Non Tender, Supple, Limited Range of Motion (secondary to pain), Tender Lateral, Other (No nuchal rigidity. ) Respiratory: Chest Non Tender, Lungs Clear, Normal Breath Sounds Cardiovascular: Regular Rate, Rhythm, No Edema, No JVD, No Murmur, Normal Peripheral Pulses Gastrointestinal: Normal Bowel Sounds, Non Tender, Soft Extremity: Normal Capillary Refill, Normal Range of Motion, No Calf Tenderness, No Pedal Edema, Swelling (Right UE, neurovas status intact right UE, decrease strength scondary to swelling. ) Neurologic/Psychiatric: Alert, Oriented x3, No Motor/Sensory Deficits, Normal Mood/Affect Skin: normal color, warm/dry; No diaphoresis, No jaundice, No ulcerations Lymphatic: No Adenopathy Focused Exam Sepsis Stage: Sepsis Possible Source: Unknown Lactate Level 12/06/18 19:00: Lactic Acid Level 1.14 Time of Focused Exam: 20:30 Respiratory: Lungs Clear Cardiovascular: Regular Rate, Rhythm, Normal Peripheral Pulses Capillary Refill: Less Than 3 Seconds Skin: normal color, warm/dry; No diaphoresis Lactic Acid Level Laboratory Tests Test 12/06/18 19:00 Lactic Acid Level 1.14 MMOL/L (0.50-2.00) Within 3hrs of presentation: Admin fluids, Admin 30ml/kg IBW due to BMI>30, Admin ABX, Blood cultures prior to ABX's, Focus exam, Lactate level Progress/Results/Core Measures Suspected Sepsis Recent Fever Within 48 Hours: Yes Infection Criteria Present: None New/Unexplained Altered Menta: No Sepsis Screen: No Definite Risk Within 3hrs of presentation: Admin fluids, Admin ABX, Blood cultures prior to ABX's, Focus exam, Lactate level SIRS Temperature: Pulse: 108 Respiratory Rate: 12 Laboratory Tests 12/06/18 19:00: White Blood Count 19.2H Blood Pressure 146 /90 Mean: 108 12/06/18 19:00: Lactic Acid Level 1.14 Laboratory Tests 12/06/18 19:00: Creatinine 0.96, INR Comment 1.3, Platelet Count 363, Total Bilirubin 0.9 Results/Orders Lab Results Laboratory Tests Test 12/06/18 19:00 12/06/18 20:00 Range/Units White Blood Count 19.2 H 4.3-11.0 10^3/uL Red Blood Count 4.81 4.35-5.85 10^6/uL Hemoglobin 13.8 13.3-17.7 G/DL Hematocrit 42 40-54 % Mean Corpuscular Volume 86 80-99 FL Mean Corpuscular Hemoglobin 29 25-34 PG Mean Corpuscular Hemoglobin Concent 33 32-36 G/DL Red Cell Distribution Width 14.7 H 10.0-14.5 % Platelet Count 363 130-400 10^3/uL Mean Platelet Volume 9.0 7.4-10.4 FL Neutrophils (%) (Auto) 81 H 42-75 % Lymphocytes (%) (Auto) 7 L 12-44 % Monocytes (%) (Auto) 12 0-12 % Eosinophils (%) (Auto) 0 0-10 % Basophils (%) (Auto) 0 0-10 % Neutrophils # (Auto) 15.5 H 1.8-7.8 X 10^3 Lymphocytes # (Auto) 1.4 1.0-4.0 X 10^3 Monocytes # (Auto) 2.3 H 0.0-1.0 X 10^3 Eosinophils # (Auto) 0.0 0.0-0.3 10^3/uL Basophils # (Auto) 0.0 0.0-0.1 10^3/uL Neutrophils % (Manual) 81 % Lymphocytes % (Manual) 7 % Monocytes % (Manual) 12 % Toxic Granulation 1+ Blood Morphology Comment NORMAL Prothrombin Time 16.8 H 12.2-14.7 SEC INR Comment 1.3 0.8-1.4 Activated Partial Thromboplast Time 39 H 24-35 SEC Sodium Level 135 135-145 MMOL/L Potassium Level 4.0 3.6-5.0 MMOL/L Chloride Level 97 L 98-107 MMOL/L Carbon Dioxide Level 26 21-32 MMOL/L Anion Gap 12 5-14 MMOL/L Blood Urea Nitrogen 18 7-18 MG/DL Creatinine 0.96 0.60-1.30 MG/DL Estimat Glomerular Filtration Rate > 60 BUN/Creatinine Ratio 19 Glucose Level 111 H 70-105 MG/DL Lactic Acid Level 1.14 0.50-2.00 MMOL/L Calcium Level 9.4 8.5-10.1 MG/DL Corrected Calcium 9.6 8.5-10.1 MG/DL Total Bilirubin 0.9 0.1-1.0 MG/DL Aspartate Amino Transf (AST/SGOT) 14 5-34 U/L Alanine Aminotransferase (ALT/SGPT) 30 0-55 U/L Alkaline Phosphatase 60 40-136 U/L Total Creatine Kinase 36 30-200 U/L Myoglobin 63.3 10.0-92.0 NG/ML Troponin I < 0.028 <0.028 NG/ML Total Protein 7.7 6.4-8.2 GM/DL Albumin 3.7 3.2-4.5 GM/DL Urine Color YELLOW Urine Clarity CLEAR Urine pH 6.5 5-9 Urine Specific [place] 1.020 1.016-1.022 Urine Protein NEGATIVE NEGATIVE Urine Glucose (UA) NEGATIVE NEGATIVE Urine Ketones NEGATIVE NEGATIVE Urine Nitrite NEGATIVE NEGATIVE Urine Bilirubin NEGATIVE NEGATIVE Urine Urobilinogen NORMAL NORMAL MG/DL Urine Leukocyte Esterase NEGATIVE NEGATIVE Urine RBC (Auto) 3+ H NEGATIVE Urine RBC 5-10 H /HPF Urine WBC NONE /HPF Urine Crystals NONE /LPF Urine Bacteria NEGATIVE /HPF Urine Casts NONE /LPF Urine Mucus SMALL H /LPF Urine Culture Indicated CULTURE PENDING Micro Results Microbiology 12/06/18 Influenza Types A,B Antigen (SHELIA) - Final, Complete My Orders Orders - DOTTIE FRENCH Cbc With Automated Diff (12/06/18 18:53) Comprehensive Metabolic Panel (12/06/18 18:53) Blood Culture (12/06/18 18:53) Urinalysis (12/06/18 18:53) Urine Culture (12/06/18 18:53) Protime With Inr (12/06/18 18:53) Partial Thromboplastin Time (12/06/18 18:53) Ed Iv/Invasive Line Start (12/06/18 18:53) Lactic Acid Analyzer (12/06/18 18:53) Chest Pa/Lat (2 View) (12/06/18 18:53) Troponin I (12/06/18 19:07) Ed Iv/Invasive Line Start (12/06/18 19:07) Ns Iv 1000 Ml (Sodium Chloride 0.9%) (12/06/18 19:07) Manual Differential (12/06/18 19:00) Acetaminophen Tablet (Tylenol Tablet) (12/06/18 19:28) Vancomycin Injection (Vancomycin Injecti (12/06/18 19:45) Meropenem (Merrem 500 Mg) (12/06/18 19:45) Enoxaparin Injection (Lovenox Injection) (12/06/18 20:15) Influenza A And B Antigens (12/06/18 20:15) Creatine Kinase (12/06/18 20:17) Myoglobin Serum (12/06/18 20:17) Ed Iv/Invasive Line Start (12/06/18 20:23) Ns Iv 1000 Ml (Sodium Chloride 0.9%) (12/06/18 20:23) Medications Given in ED Current Medications Medications Dose Ordered Sig/Hugh Route Start Time Stop Time Status Last Admin Dose Admin Meropenem 500 mg/ Sterile Water 10 ml @ 200 mls/hr ONCE ONCE IV 12/06/18 19:45 12/06/18 19:47 DC 12/06/18 20:02 200 MLS/HR Vancomycin HCl 1000 mg/Sodium Chloride 250 ml @ 250 mls/hr ONCE ONCE IV 12/06/18 19:45 12/06/18 20:44 DC 12/06/18 20:30 250 MLS/HR Vital Signs/I&O 12/06/18 12/06/18 12/06/18 18:49 19:37 21:14 Temp 38.9 38.9 37.5 Pulse 108 86 Resp 12 14 B/P (MAP) 146/90 (108) 128/72 Pulse Ox 95 96 O2 Delivery Room Air Room Air Capillary Refill : Less Than 3 Seconds Blood Pressure Mean: 108 Progress Note : Time: 19:15 Progress Note Patient seen and evaluated, pulse 102-110, Temp 102, B/P 140s/90s. Will start Sepsis work up. No US available tonight, Per Dr. Sheppard Hold Elliquis and start Lovenox 1mg/kg. IV fluids 2 liters NS. Temp 38.9, Tylenol 1,[address] PO. Spoke to Dr. Sheppard by Phone. 1999 Pulse 90-100, Dr. Sheppard agreed to admit patient. 2029 Temp 38.5, Patient alert, talking to family, no Complaints at this time. Vancomycin started. Meropenem infused. 2114 Patient admitted to [address] [place] [address] with Telemetry. Remained stable in ED and temp 36.6 ECG Initial ECG Impression Date: Dec 06, 2018 Initial ECG Impression Time: 18:54 Initial ECG Rate: 104 Initial ECG Rhythm: Normal Sinus Initial ECG Intervals: Normal Initial ECG Intervals NC 160, QRSD 104, QT 320, QTc 421 [place] P 22, QRS -29, T 3 Initial ECG Impression: Normal Initial ECG Comparisson: Unchanged Comment Reviewed with Dr Jon, agreed with interpretation. Diagnostic Imaging Diagonstic Imaging: Xray Plain Films/CT/US/NM/MRI: chest Comments NAME: RG CAVANAUGH [facility] REC#: [id number] PHYSICIAN: DOTTIE FRENCH CC: MARIA CAMACHO MD; DOTTIE FRENCH Page 1 of 1 RADIOLOGY REPORT [facility]. [place], [place] CC: MARIA CAMACHO MD; DOTTIE FRENCH Page 1 of 1 RADIOLOGY REPORT NAME: RG CAVANAUGH [facility] REC#: [id number] PT STATUS: REG ER : 1950 PHYSICIAN: DOTTIE FRENCH ADMIT DATE: 12/06/18/ER Signed Date of Exam: 12/06/18 CHEST PA/LAT (2 VIEW) INDICATION: Chest and neck pain. FINDINGS: Two views of the chest show normal heart size and vascularity. The lungs are clear. There is no effusion or pneumothorax. There is some elevation of the right hemidiaphragm. There is no bony abnormality. IMPRESSION: No acute abnormality is seen. Dictated by: Dictated on workstation # [id number] Dict: 12/06/181935 Trans: 12/06/181938 Interpreted by: MARIA CAMACHO MD Electronically signed by: MARIA CAMACHO MD 12/06/181938 Reviewed: Reviewed by Me Departure Impression Primary Impression: Sepsis Qualified Codes: A41.9 - Sepsis, unspecified organism Additional Impression: Prostate CA Disposition: ADMITTED INPATIENT Condition: Stable Admissions Decision to Admit Reason: Admit from ER (General) Decision to Admit/Date: Dec 06, 2018 Time/Decision to Admit Time: 20:00 Departure-Patient Inst. Referrals: GIOVANI SHEPPARD DO (PCP/Family) Primary Care Physician Copy Copies To 1: GIOVANI SHEPPARD AMY ARNP Dec 06, 2018 19:33
[2018-12-06 19:36] LABS: ALANINE AMINOTRANSFERASE 30 U/L (0-55); ALBUMIN 3.7 GM/DL (3.2-4.5); ALKALINE PHOSPHATASE 60 U/L (40-136); BILIRUBIN,TOTAL 0.9 MG/DL (0.1-1.0); BUN/CREATININE RATIO 19; CALCIUM 9.4 MG/DL (8.5-10.1); CARBON DIOXIDE 26 MMOL/L (21-32); CHLORIDE 97 MMOL/L (98-107); CREATININE SERUM 0.96 MG/DL (0.60-1.30); GFR ESTIMATED > 60; GLUCOSE 111 MG/DL (70-105); SODIUM 135 MMOL/L (135-145); TOTAL PROTEIN 7.7 GM/DL (6.4-8.2)
--- NOTE | 2018-12-06 19:38 | Diagnostic Imaging Report ---
INDICATION: Chest and neck pain. FINDINGS: Two views of the chest show normal heart size and vascularity. The lungs are clear. There is no effusion or pneumothorax. There is some elevation of the right hemidiaphragm. There is no bony abnormality. IMPRESSION: No acute abnormality is seen. Dictated by: Dictated on workstation # [id number]
[2018-12-06 19:41] LABS: LYMPHOCYTES % (MANUAL) 7 %; MONOCYTES % (MANUAL) 12 %; NEUTROPHILS % (MANUAL) 81 %; RBC MORPH NORMAL; TOXIC GRANULATION/VACUOLAZATIO 1+
[2018-12-06] MEDS ORDERED: VANCOMYCIN INJECTION 1,000 MG in NS (IVPB) 250 ML IV ONE (19:45)
[2018-12-06] MEDS ORDERED: MEROPENEM 500 MG in WATER (STERILE) FOR INJECTION 10 ML IV ONE (19:45)
[2018-12-06 20:07] LABS: BILIRUBIN,URINE NEGATIVE (NEGATIVE); CLARITY,URINE CLEAR; COLOR,URINE YELLOW; GLUCOSE, URINE (UA) NEGATIVE (NEGATIVE); KETONES,URINE NEGATIVE (NEGATIVE); LEUKOCYTE ESTERASE ,URINE NEGATIVE (NEGATIVE); NITRITE,URINE NEGATIVE (NEGATIVE); PH,URINE 6.5 (5-9); PROTEIN,URINE NEGATIVE (NEGATIVE); UROBILINOGEN,URINE NORMAL (NORMAL)
[2018-12-06 20:13] LABS: BACTERIA,URINE NEGATIVE /HPF
[2018-12-06] MEDS ORDERED: ENOXAPARIN 100 MG/1 ML (LOVENOX) SYR SC ONE (20:15)
--- NOTE | 2018-12-06 20:44 | NUR ---
patients temp 38.6 C
[2018-12-06 21:47] VITALS: BP 136/87
--- NOTE | 2018-12-06 21:50 | NUR ---
RG CAVANAUGH admitted to room 432-1, with an admitting diagnosis of SEPSIS, PROSTATE CANCER, AND DVT OF RIGHT UPPER EXTREMITY on 12/06/18 from ED via WC, accompanied by ED STAFF AND FAMILY MEMBER. RG CAVANAUGH introduced to surroundings, call light, bed controls, phone, TV, temperature control, lights, meal times, smoking policy, visitor policy, side rail policy, bathrooms and showers. Patient Rights given to patient in the handbook. RG CAVANAUGH verbalizes understanding that [facility] is not responsible for the loss or damage to any personal effects or valuables that are kept in the patients posession during their hospitalization. Sepsis care plan, colon cancer care plan, and discharge Planning were discussed with pt RG CAVANAUGH verbalizes understanding of Interdisciplinary Patient Education. Patient and/or family were informed about the Rapid Response Team and its purpose.
[2018-12-06] MEDS ORDERED: IBUPROFEN TABLET 200 MG TAB PO PRN (22:00)
[2018-12-06] MEDS ORDERED: fentaNYL INJECTION 100 MCG/2 ML AMP IV PRN (22:00)
[2018-12-06] MEDS ORDERED: ACETAMINOPHEN 325 MG TABLET PO PRN (22:00)
[2018-12-06] MEDS ORDERED: ONDANSETRON 4 MG/2 ML (SDV) Z0FRAN IV PRN (22:00)
[2018-12-06] MEDS ORDERED: MEROPENEM 500 MG/SWFI 10 ML IV PUSH IV SCH ×2 (22:00)
[2018-12-06] MEDS ORDERED: guaiFENesin/DM (ROBITUSSIN DM) 10 ML UDC PO PRN (22:00)
[2018-12-06] MEDS ORDERED: POLYETHYLENE GLYCOL 17 GM (MIRALAX) PACK PO PRN (22:00)
[2018-12-06] MEDS ORDERED: ZOLPIDEM 5 MG (AMBIEN) TAB PO PRN (22:00)
[2018-12-06] MEDS: NS IV 1000 ML 1,000 ML IV SCH (22:18)
[2018-12-06] MEDS: diphenhydrAMINE 25 MG TAB (BENADRYL) PO PRN (22:19)
[2018-12-06 23:00] VITALS: BP 136/87
[2018-12-06] MEDS ORDERED: RT-ALBUTEROL SULF 2.5 MG/3 ML PRE-MIX VIAL INH PRN (23:15)
[2018-12-06 23:49] VITALS: BP 137/89
[2018-12-07] MEDS: MEROPENEM 500 MG/SWFI 10 ML IV PUSH IV SCH ×8 (01:22→20:34)
[2018-12-07 03:12] VITALS: BP 156/96
[2018-12-07] MEDS: NS IV 1000 ML 1,000 ML IV SCH ×3 (04:52→17:21)
[2018-12-07 05:12] LABS: BASOPHILS % (AUTO) 0 % (0-10); EOSINOPHILS # (AUTO) 0.1 10^3/uL (0.0-0.3); EOSINOPHILS % (AUTO) 1 % (0-10); HEMATOCRIT 36 % (40-54); LYMPHOCYTES % (AUTO) 7 % (12-44); MEAN CORPUSCULAR HEMOGLOBIN 29 PG (25-34); MEAN CORPUSCULAR HGB CONC 33 G/DL (32-36); MEAN CORPUSCULAR VOLUME 87 FL (80-99); MEAN PLATELET VOLUME 9.3 FL (7.4-10.4); MONOCYTES # (AUTO) 1.4 X 10^3 (0.0-1.0); MONOCYTES % (AUTO) 10 % (0-12); NEUTROPHILS % (AUTO) 82 % (42-75); PLATELET COUNT 278 10^3/uL (130-400); RED CELL DISTRIBUTION WIDTH 14.4 % (10.0-14.5); WHITE BLOOD COUNT 13.5 10^3/uL (4.3-11.0)
[2018-12-07 05:52] LABS: ALANINE AMINOTRANSFERASE 21 U/L (0-55); ALKALINE PHOSPHATASE 58 U/L (40-136); BILIRUBIN,TOTAL 1.1 MG/DL (0.1-1.0); BUN/CREATININE RATIO 19; CALCIUM 8.3 MG/DL (8.5-10.1); CARBON DIOXIDE 23 MMOL/L (21-32); CHLORIDE 106 MMOL/L (98-107); CREATININE SERUM 0.74 MG/DL (0.60-1.30); GFR ESTIMATED > 60; GLUCOSE 105 MG/DL (70-105); POTASSIUM 3.9 MMOL/L (3.6-5.0); SODIUM 137 MMOL/L (135-145); TOTAL PROTEIN 5.5 GM/DL (6.4-8.2)
[2018-12-07] MEDS ORDERED: VANCOMYCIN 1 GM/NS 250 ML IVPB IV SCH ×2 (07:45)
[2018-12-07 08:00] VITALS: BP 151/96
[2018-12-07] MEDS: VANCOMYCIN INJECTION 1,500 MG in NS IV 500 ML 500 ML IV SCH ×2 (08:18→20:35)
[2018-12-07] MEDS: DOCUSATE SODIUM 100 MG (COLACE) CAP PO SCH ×3 (08:18→20:35)
[2018-12-07] MEDS: ENOXAPARIN 100 MG/1 ML (LOVENOX) SYR SC SCH ×2 (08:19→20:35)
--- NOTE | 2018-12-07 08:21 | NUR ---
VANCOMYCIN DOSING SCR 0.74 (USED 1.0); CRCL ~ 85; VANC 1 GM GIVEN IN ED AT 2030; CHAS SOLIS DOSED VANC 1 GM Q12H - REVIEWED AND DOSED VANC 15 MG/KG X 101 KG ~ 1500 MG Q12H CHECK TROUGH LEVEL 12/08 0700 HOLD DOSE AND CONTACT PHARMACY IF LEVEL IS GREATER THAN 20
[2018-12-07] MEDS ORDERED: APIX5TAB PO (08:58)
[2018-12-07] MEDS ORDERED: LORA10TA7 PO (08:58)
[2018-12-07] MEDS ORDERED: PRD20T PO (08:58)
[2018-12-07] MEDS ORDERED: ACET-168 PO (08:58)
--- NOTE | 2018-12-07 08:59 | NUR ---
SPOKE WITH THE PATIENT ABOUT HIS MEDICATIONS. HE LISTED WHAT HE IS TAKING AND I VERIFIED THE PRESCRIPTIONS WITH THE EXT MED HX. HE STATES HE DID FILL THE ELIQUIS FROM HIS LAST DISCHARGE, HE USES THE FREE 30 DAY TRIAL SO I ASSUME THAT IS WHY IT IS NOT SHOWING ON THE EXT MED HX.
[2018-12-07] MEDS ORDERED: predniSONE 20 MG TAB PO NR (10:18)
--- NOTE | 2018-12-07 10:19 | History & Physical ---
History of Present Illness HPI/Chief Complaint Chief complaint: Fever with sepsis HPI: This is a 68yoWM with a recent history of anal melanoma, obtaining treatment at [facility], who presented to the ER after I was contacted by his daughter reported a fever and not able to walk. He was assessed in the ER found to have a 102 degree fever, workup for sepsis was ensued revealing white count of 19,000 clinically showed dehydration, so he was placed on IV fluids and broad spectrum antibiotics of Meropenem and Vancomycin initiated after montiel cultured and was placed on supportive IV fluids through the night. Fever defervesced and Pt feeling much better but right arm swelling was concerning for Eliquis failure and increased clot burden. Ultrasound was obtained showing no evidence of any of that but Lovenox was initiated of 1 Mg/Kg therapeutic dose. In the mean time will workup completed. I did speak to Dr. Oh's PA in depth, recommended Prednisone 60 Mg daily likely the fever and sepsis from immunotherapy side affects given on Thursday and recommended to continue supportive care, broad spectrum antibiotics until all cultures would come back and discharge on Callie with follow up at Thursday. At this current time Pt denies any significant issues. He was able to eat breakfast without any difficulty and overall feels much better than when he was admitted. Source: patient Exam Limitations: no limitations Date Seen 12/07/18 Time Seen by a Provider: 10:00 Attending Physician Zena Trimble DO PCP Zena Trimble DO Referring Physician Date of Admission Dec 06, 2018 at 20:00 Home Medications & Allergies Home Medications Reviewed patient Home Medication Reconciliation performed by pharmacy medication reconciliations truck engine technician and/or nursing. Patients Allergies have been reviewed. Allergies Allergies Coded Allergies Penicillins (Verified Allergy, Unknown, HIVES, 11/18/18) cedarwood (Verified Allergy, Unknown, 11/18/18) grass pollen (Verified Allergy, Unknown, 11/18/18) mold (Verified Allergy, Unknown, 11/18/18) unknown Uncoded Allergies ANETHESIA MED ( Allergy, Mild, 06/30/08) Past Adtgpmh-Crwajr-Uidexn Hx Past Med/Social Hx: Reviewed Nursing Past Med/Soc Hx, Reviewed and Corrections made Patient Social History Marrital Status: Employed/Student: employed Alcohol Use: Denies Use Recreational Drug Use: No Smoking Status: Never a Smoker 2nd Hand Smoke Exposure: No Recent Foreign Travel: No Contact w/other who traveled: No Recent Hopitalizations: No Recent Infectious Disease Expo: No Immunizations Up To Date Tetanus Booster (TDap): Unknown Date of Pneumonia Vaccine: Feb 01, 2018 Date of Influenza Vaccine: Oct 17, 2018 Seasonal Allergies Seasonal Allergies: Yes Past Medical History Surgeries: Appendectomy, Joint Replacement, Orthopedic, Tonsillectomy Currently Using CPAP: No Currently Using BIPAP: No Cardiac: Deep Vein Thrombosis Reproductive: No Musculoskeletal: Arthritis, Fractures, Gout Cancer: Rectal, Melanoma Did You Recieve Any Treatments: Yes What Type of Treatment Did You: Other History of Blood Disorders: No Review of Systems Constitutional: see HPI, dizziness, fever, malaise, weakness EENTM: no symptoms reported Respiratory: no symptoms reported Cardiovascular: no symptoms reported Gastrointestinal: no symptoms reported Genitourinary: no symptoms reported Musculoskeletal: back pain, joint pain Skin: no symptoms reported Psychiatric/Neurological: No Symptoms Reported All Other Systems Reviewed Negative Unless Noted: Yes Physical Exam Physical Exam Vital Signs Vital Signs - First Documented 12/06/18 18:49 Temp 38.9 Pulse 108 Resp 12 B/P (MAP) 146/90 (108) Pulse Ox 95 O2 Delivery Room Air Capillary Refill : Less Than 3 Seconds Height, Weight, BMI Height: 5'11.00" Weight: 240lbs. 0.0oz. 108.416641ic; 31.16 BMI Method:Stated General Appearance: No Apparent Distress, WD/WN Eyes: Bilateral Eye Normal Inspection, Bilateral Eye PERRL, Bilateral Eye EOMI HEENT: PERRL/EOMI, TMs Normal, Normal ENT Inspection, Pharynx Normal Neck: Full Range of Motion, Normal Inspection, Non Tender, Supple, Limited Range of Motion (secondary to pain), Tender Lateral, Other (No nuchal rigidity. ) Respiratory: Chest Non Tender, Lungs Clear, Normal Breath Sounds, No Accessory Muscle Use, No Respiratory Distress Cardiovascular: Regular Rate, Rhythm, No Edema, No Gallop, No JVD, No Murmur, Normal Peripheral Pulses Gastrointestinal: Normal Bowel Sounds, Non Tender, Soft Extremity: Normal Capillary Refill, Normal Range of Motion, No Calf Tenderness, No Pedal Edema, Swelling (Right UE, neurovas status intact right UE, decrease strength scondary to swelling. ) Neurologic/Psychiatric: Alert, Oriented x3, No Motor/Sensory Deficits, Normal Mood/Affect, whiskey proof reader II-XII Norm as Tested Lymphatic: No Adenopathy Results Results/Procedures Labs Laboratory Tests 12/06/18 19:00 12/07/18 04:53 Patient resulted labs reviewed. 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 Right brachial DVT 11/18/18 on Eliquis Gout Plan: Broad spectrum abx IVF PT/OT Lovenox Repeat right UE USG Admission Status: Inpatient Order (span 2 midnights) Reason for Inpatient Admission: Sepsis in patient on chemotherapy Diagnosis/Problems Diagnosis/Problems (1) Sepsis Status: Acute Qualifiers: Sepsis type: sepsis due to unspecified organism Sepsis acute organ dysfunction status: without acute organ dysfunction Qualified Codes: A41.9 - Sepsis, unspecified organism (2) Fever Status: Acute Qualifiers: Fever type: unspecified Qualified Codes: R50.9 - Fever, unspecified (3) 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 (4) 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 Qualifiers: Chronicity: chronic Qualified Codes: I82.721 - 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 (5) History of DVT of lower extremity Status: Chronic (6) Leukocytosis Status: Acute Qualifiers: Leukocytosis type: leukemoid reaction Qualified Codes: D72.823 - Leukemoid reaction (7) Gout Status: Chronic Qualifiers: Gout site: unspecified site Gout etiology: unspecified cause Chronicity: unspecified Qualified Codes: M10.9 - Gout, unspecified Clinical Quality Measures DVT/VTE Risk/Contraindication: Risk Factor Score Per Nursin RFS Level Per Nursing on Admit: 4+=Very High ZENA TRIMBLE DO Dec 07, 2018 10:19
[2018-12-07] MEDS ORDERED: ARTIFICAL TEARS 0.4 ML UNIT DOSE (REFRESH PLUS) OU PRN (11:00)
--- NOTE | 2018-12-07 11:19 | Diagnostic Imaging Report ---
Right upper extremity venous DOPPLER. INDICATION: Hand swelling, sepsis. SPECT and color flow imaging of the deep venous system was performed. FINDINGS: The recent right upper extremity venous DOPPLER exam of 11/18/2018 noted nonocclusive thrombus involving the brachial vein. On this exam however that thrombus is no longer identified. There is generally good blood flow and compressibility throughout the deep venous system of the right upper extremity. There is no sign of a deep venous thrombosis. IMPRESSION: The thrombus of the right upper extremity seen previously has resolved. There is no evidence for a deep venous thrombosis at this time. Dictated by: Dictated on workstation # [id number]
--- NOTE | 2018-12-07 11:28 | Physical Therapy Evaluation ---
PT Evaluation-General Medical Diagnosis Admission Date Dec 06, 2018 at 20:00 Medical Diagnosis: sepsis/prostate cancer/DVT right UE Onset Date: Dec 06, 2018 Therapy Diagnosis Therapy Diagnosis: debility Height/Weight Height (Feet): 5 Height (Inches): 11.00 Weight (Pounds): 240 Weight (Ounces): 0.0 Precautions Precautions/Isolations: Standard Precautions Weight Bear Status Right Lower Extremity: Right Full Weight Bearing Left Lower Extremity: Left Full Weight Bearing Referral Physician: Nai Reason for Referral: Evaluation/Treatment Medical History Additional Medical History rectal and prostate cancer/bilateral TKR/patient has been receiving Immunotherapy at for prostate cancer and reports he usually receives 40 mg prednisone, however, did not this time Current History ER secondary to neck, shoulder and rib pain/fever/generalized weakness Reviewed History: Yes Social History Home: Single Level Current Living Status: Alone Prior/Core FIM Prior Level of Function Therapy Code Descriptions/Definitions Functional [place] Measure: 0=Not Assessed/NA 4=Minimal Assistance 1=Total Assistance 5=Supervision or Setup 2=Maximal Assistance 6=Modified [place] 3=Moderate Assistance 7=Complete [place] Therapy Quality Codes: 6 Independent with activity with or without an assistive device 5 Patient requires set up or clean up by helper. Patient completes activity by themselves 4 Supervision or touching assist (CGA). [place] provide cues , steadying assist 3 The helper provides less than half the effort to complete the activity 2 The helper provides more than half the effort to complete the activity 1 Dependent. The helper does all the effort to complete an activity 7 Patient refused to complete or attempt activity 9 The patient did not perform the activity before the current illness or injury 88 Not attempted due to Medical conditions or safety concerns Functional Abilities and Goals: Independent: Patient completed the activities by him/herself, with or without an assistive device, with no assistance from a helper. Needed Some Help: Patient needed partial assistance from another person to complete activities. Dependent: A helper completed the activities for the patient. Unknown: Not Applicable: Bed Mobility: 7 Transfers (B,C,W/C) (FIM): 7 Gait: 7 Stairs: 7 Indoor Mobility (Ambulation): Independent Stairs: Independent Prior Devices Use: None PT Evaluation-Current Subjective Patient report stiffness neck and ribs and has difficulty with bed mobility due to this discomfort. Pain Numeric Pain Scale: 8 Location: Joint, Soft Tissue Location Body Site: Neck Pain Description: Ache, Pressure Objective Patient Orientation: Normal For Age Problem Solving: Good Attachments: IV ROM/Strength ROM Lower Extremities bilateral LE WFL Strength Lower Extremities 4/5 grossly bilateral LE Integumentary/Posture Integumentary refer to nursing notes Bowel Incontinence: No Bladder Incontinence: No Posture cervical flexion Neuromuscular (Tone, Coordination, Reflexes) grossly intact Sensory Vision: Wears Glasses Hearing: Functional Sensation Right Lower Extremit: Intact Sensation Left Lower Extremity: Intact Transfers Therapy Code Descriptions/Definitions Functional [place] Measure: 0=Not Assessed/NA 4=Minimal Assistance 1=Total Assistance 5=Supervision or Setup 2=Maximal Assistance 6=Modified [place] 3=Moderate Assistance 7=Complete [place] Transfers (B, C, W/C) (FIM): 6 Scootin Rollin Supine to/from Sit: 6 Sit to/from Stand: 7 slight difficulty due to neck and rib pain, however, able to perform Gait Mode of Locomotion: Walk Anticipated Mode of Locomotion: Walk Gait (FIM): 7 Distance (FIM): 3=150 ft Distance: 800' Gait Level of Assist: 7 Gait Assistive Device: None Comments/Gait Description safe and functional with no deviation Balance Sitting Static: Normal Sitting Dynamic: Normal Standing Static: Normal Standing Dynamic: Normal Assessment/Needs 68 y.o. male, is currently at [facility] with gross motor skill and does not require skilled therapy intervention at this time. Patient has been instructed to ambulate PRN in hallway independently or with staff if IV pole. Rehab Potential: Fair PT Plan Treatment/Plan Treatment Plan: Discontinue PT, goals met Treatment Plan: Other Treatment Duration: Dec 07, 2018 Frequency: 1 time per week Estimated Hrs Per Day: .25 hour per day Patient and/or Family Agrees t: Yes Time/GCodes Time In: 1050 Time Out: 1058 Total Billed Treatment Time: 8 Total Billed Treatment 1 visit EVLowC 8 min RIVAS CORONADO PT Dec 07, 2018 11:27
[2018-12-07] MEDS: BACLOFEN 10 MG (LIORESAL) TAB PO PRN (11:40)
[2018-12-07 12:00] VITALS: BP 122/71
[2018-12-07] MEDS: diphenhydrAMINE 25 MG TAB (BENADRYL) PO PRN ×3 (13:54→23:36)
--- NOTE | 2018-12-07 15:48 | Occupational Therapy Eval ---
OT Evaluation-General/PLF Medical Diagnosis Admission Date Dec 06, 2018 at 20:00 Medical Diagnosis: sepsis/prostate cancer/DVT right UE Onset Date: Dec 06, 2018 Therapy Diagnosis Therapy Diagnosis: debility Height/Weight Height (Feet): 5 Height (Inches): 11.00 Weight (Pounds): 240 Weight (Ounces): 0.0 Precautions Precautions/Isolations: Standard Precautions Referral Physician: Nai Medical History Pertinent Medical History: Arthritis Additional Medical History bilateral TKA, gout, rectal cancer, melanoma Current History Pt presented to ED with c/o SOA, and neck, shoulder, hand, and rib pain Social History Home: Single Level Current Living Status: Alone ADL-Prior Level of Function Therapy Code Descriptions/Definitions Functional [place] Measure: 0=Not Assessed/NA 4=Minimal Assistance 1=Total Assistance 5=Supervision or Setup 2=Maximal Assistance 6=Modified [place] 3=Moderate Assistance 7=Complete [place] Therapy Quality Codes: 6 Independent with activity with or without an assistive device 5 Patient requires set up or clean up by helper. Patient completes activity by themselves 4 Supervision or touching assist (CGA). [place] provide cues , steadying assist 3 The helper provides less than half the effort to complete the activity 2 The helper provides more than half the effort to complete the activity 1 Dependent. The helper does all the effort to complete an activity 7 Patient refused to complete or attempt activity 9 The patient did not perform the activity before the current illness or injury 88 Not attempted due to Medical conditions or safety concerns Functional Abilities and Goals: Independent: Patient completed the activities by him/herself, with or without an assistive device, with no assistance from a helper. Needed Some Help: Patient needed partial assistance from another person to complete activities. Dependent: A helper completed the activities for the patient. Unknown: Not Applicable: ADL PLOF Comments Pt reports being independent with all ADLs and mobility prior to admission. Works public health Self Care: Independent Functional Cognition: Independent Drive Self: Yes OT Current Status Subjective Pt sitting in chair, agrees to therapy. Pt states he is not currently having any pain. Mental Status/Objective Patient Orientation: Person, Place, Situation Current Upper Extremity ROM decreased right hand secondary to swelling, but remainder grossly functional. Pt states right hand ROM has improved, but is still decreased. Weak complaint evaluation officer. Upper Extremity Coordination decreased right hand secondary to swelling. ADL-Treatment ADL-Current Pt sitting in chair, states he has been completing ADLs and mobility, and his only concern is the swelling in his right hand. States he has been up ambulating without assist, has already showered, and was able to don socks without assist. Pt states he has been feeding himself with his right hand, but has decreased coordination secondary to swelling. Pt reports being hospitalized a few weeks ago secondary to DVT in right UE, but states it has resolved. During recent hospitalization pt was given a therapy sponge and shown gentle ROM exercises for his hand, which pt is able to demonstrate to this therapist. Pt has decreased ROM in hand, but he reports improvement from admission. Educated pt on positioning for right UE and elevating hand to decrease swelling. Pt states understanding of education. Will follow up for any questions or concerns. Pt sitting in chair with needs met after session. Therapy Code Descriptions/Definitions Functional [place] Measure: 0=Not Assessed/NA 4=Minimal Assistance 1=Total Assistance 5=Supervision or Setup 2=Maximal Assistance 6=Modified [place] 3=Moderate Assistance 7=Complete [place] Therapy Quality Codes: 6 Independent with activity with or without an assistive device 5 Patient requires set up or clean up by helper. Patient completes activity by themselves 4 Supervision or touching assist (CGA). [place] provide cues , steadying a ssist 3 The helper provides less than half the effort to complete the activity 2 The helper provides more than half the effort to complete the activity 1 Dependent. The helper does all the effort to complete an activity 7 Patient refused to complete or attempt activity 9 The patient did not perform the activity before the current illness or injury 88 Not attempted due to Medical conditions or safety concerns Education OT Patient Education: Correct positioning, Purpose of tx/functional activities, Rehab process Teaching Recipient: Patient Teaching Methods: Discussion Response to Teaching: Verbalize Understanding OT Short Term Goals Short Term Goals 1=Demonstrate adherence to instructed precautions during ADL tasks. 2=Patient will verbalize/demonstrate understanding of assistive devices/modifications for ADL. 3=Patient will improve strength/tolerance for activity to enable patient to perform ADL's. OT Conservation Educator Goals Assisted Goals 1=Demonstrate adherence to instructed precautions during ADL tasks. 2=Patient will verbalize/demonstrate understanding of assistive devices/modifications for ADL. 3=Patient will improve strength/tolerance for activity to enable patient to perform ADL's. OT Education/Plan Problem List/Assessment Assessment: Restricted Funct UE ROM Pt admitted with sepsis, prostate cancer, right UE DVT. Pt states he has been completing ADLs and mobility without assist. Pt has swelling of right hand which impacts coordination and functional use. Pt demonstrates gentle ROM and states he has a hand sponge at home that he used after his last admission. Educated pt on elevating hand to decrease swelling. Pt states understanding of education and states he is familiar with this from previous admission. Will follow up with pt for any questions or concerns. Discharge Recommendations Plan/Recommendations: Continue POC Treatment Plan/Plan of Care Treatment Duration: Dec 08, 2018 Frequency: 1 time per week (Will see pt for one more session to follow up for any questions) Estimated Hrs Per Day: .25 hour per day Rehab Potential: Fair Time/GCodes Start Time: 13:57 Stop Time: 14:17 Total Time Billed (hr/min): 20 Billed Treatment Time 1 visit, EVDave(20minutes) TAMERA MORALEZ OT Dec 07, 2018 15:47
[2018-12-07 16:00] VITALS: BP 130/79
[2018-12-07 19:57] VITALS: BP 132/82
[2018-12-07] MEDS: ALLOPURINOL 100 MG (ZYLOPRIM) TAB PO SCH (20:35)
[2018-12-08] VITALS (7 sets, daily range): BP systolic 135–162; BP diastolic 71–91
[2018-12-08] MEDS: MEROPENEM 500 MG/SWFI 10 ML IV PUSH IV SCH ×2 (02:03)
[2018-12-08] MEDS: NS IV 1000 ML 1,000 ML IV SCH (04:18)
[2018-12-08] MEDS: predniSONE 20 MG TAB PO SCH (06:25)
[2018-12-08] MEDS ORDERED: TROUGH ORDER-PHARMACY XX NR (07:00)
[2018-12-08 07:45] LABS: BASOPHILS % (AUTO) 0 % (0-10); EOSINOPHILS % (AUTO) 0 % (0-10); HEMATOCRIT 40 % (40-54); HEMOGLOBIN 12.9 G/DL (13.3-17.7); LYMPHOCYTES # (AUTO) 1.5 X 10^3 (1.0-4.0); LYMPHOCYTES % (AUTO) 8 % (12-44); MEAN CORPUSCULAR HEMOGLOBIN 28 PG (25-34); MEAN CORPUSCULAR HGB CONC 32 G/DL (32-36); MEAN CORPUSCULAR VOLUME 87 FL (80-99); MEAN PLATELET VOLUME 9.4 FL (7.4-10.4); MONOCYTES % (AUTO) 6 % (0-12); NEUTROPHILS # (AUTO) 15.1 X 10^3 (1.8-7.8); NEUTROPHILS % (AUTO) 86 % (42-75); PLATELET COUNT 305 10^3/uL (130-400); RED CELL DISTRIBUTION WIDTH 14.4 % (10.0-14.5); WHITE BLOOD COUNT 17.6 10^3/uL (4.3-11.0)
[2018-12-08 08:14] LABS: ALANINE AMINOTRANSFERASE 32 U/L (0-55); ALBUMIN 3.2 GM/DL (3.2-4.5); ALKALINE PHOSPHATASE 69 U/L (40-136); BILIRUBIN,TOTAL 0.6 MG/DL (0.1-1.0); BUN/CREATININE RATIO 18; CALCIUM 9.1 MG/DL (8.5-10.1); CARBON DIOXIDE 24 MMOL/L (21-32); CHLORIDE 108 MMOL/L (98-107); CREATININE SERUM 0.72 MG/DL (0.60-1.30); GFR ESTIMATED > 60; GLUCOSE 95 MG/DL (70-105); POTASSIUM 3.8 MMOL/L (3.6-5.0); SODIUM 140 MMOL/L (135-145); TOTAL PROTEIN 6.5 GM/DL (6.4-8.2)
--- NOTE | 2018-12-08 08:30 | Progress Note ---
Subjective Date Seen by a Provider: Dec 08, 2018 Time Seen by a Provider: 07:00 Subjective/Events-last exam Pt had a good night Will stop IV fluid in addition to IV antibiotics of Meropenem and Vancomycin broad spectrum Prednisone of 60mg did increase the white count form 17 to 13 but not related to sepsis Will give him half a scoop of Miralax to help but not cause severe diarrhea that we caused a couple weeks ago when he was in hospital Will place back on [facility], [place] Lovenox for right upper extremity DVT, the ultrasound did not show any evidence of DVT but he will be o a jail oral anticoagulation due to the 2nd DVT that he has had in his life and now with cancer treatment so 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 Overall getting around with PT and getting back to baseline Will monitor fever for one more day and DC home tomorrow Review of Systems General: Fatigue Focused Exam Lactate Level 12/06/18 19:00: Lactic Acid Level 1.14 Time of Focused Exam: 20:30 Objective Exam Last Set of Vital Signs Vital Signs Date Time Temp Pulse Resp B/P (MAP) Pulse Ox O2 Delivery O2 Flow Rate FiO2 12/08/18 08:00 36.3 88 18 137/78 (97) 97 Room Air Capillary Refill : Less Than 3 Seconds I&O Intake and Output 12/08/18 00:00 Intake Total 5690 ml Output Total 5320 ml Balance 370 ml Intake Oral 1905 ml IV Total 3785 ml Output Urine Total 5320 ml General: Alert, Oriented X3, Cooperative, No Acute Distress HEENT: Atraumatic, PERRLA Lungs: Clear to Auscultation, Normal Air Movement Heart: Regular Rate, Normal S1, Normal S2, No Murmurs Extremities: No Clubbing, No Cyanosis, No Edema, Normal Pulses, No Tenderness/Swelling (except right arm and hand) Neuro: Normal Gait, Normal Speech, Strength at 5/5 X4 Ext, Normal Tone Psych/Mental Status: Mental Status NL, Mood NL Results Lab Laboratory Tests 12/08/18 07:37: White Blood Count 17.6H, Red Blood Count 4.60, Hemoglobin 12.9L, Hematocrit 40, Mean Corpuscular Volume 87, Mean Corpuscular Hemoglobin 28, Mean Corpuscular Hemoglobin Concent 32, Red Cell Distribution Width 14.4, Platelet Count 305, Mean Platelet Volume 9.4, Neutrophils (%) (Auto) 86H, Lymphocytes (%) (Auto) 8L, Monocytes (%) (Auto) 6, Eosinophils (%) (Auto) 0, Basophils (%) (Auto) 0, Neutrophils # (Auto) 15.1H, Lymphocytes # (Auto) 1.5, Monocytes # (Auto) 1.0, Eosinophils # (Auto) 0.0, Basophils # (Auto) 0.0, Sodium Level 140, Potassium Level 3.8, Chloride Level 108H, Carbon Dioxide Level 24, Anion Gap 8, Blood Urea Nitrogen 13, Creatinine 0.72, Estimat Glomerular Filtration Rate > 60, BUN/Creatinine Ratio 18, Glucose Level 95, Calcium Level 9.1, Corrected Calcium 9.7, Total Bilirubin 0.6, Aspartate Amino Transf (AST/SGOT) 20, Alanine Aminotransferase (ALT/SGPT) 32, Alkaline Phosphatase 69, Total Protein 6.5, Albumin 3.2 Microbiology 12/06/18 Blood Culture - Preliminary, Resulted No growth 12/06/18 Influenza Types A,B Antigen (SHELIA) - Final, Complete 12/06/18 Urine Culture - Final, Complete NO GROWTH Assessment/Plan Assessment/Plan Assess & Plan/Chief Complaint Assessment: Sepsis 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 Right brachial DVT 11/18/18 on Eliquis Gout Plan: Broad spectrum abx DC IVF HL PT/OT Lovenox DC restart Eliquis Repeat right UE USG was reviewed Diagnosis/Problems Diagnosis/Problems (1) Sepsis Status: Acute Qualifiers: Qualified Codes: A41.9 - Sepsis, unspecified organism (2) Fever Status: Acute Qualifiers: Qualified Codes: R50.9 - Fever, unspecified (3) 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
[2018-12-08] MEDS: DOCUSATE SODIUM 100 MG (COLACE) CAP PO SCH ×3 (08:54→21:06)
[2018-12-08] MEDS: LORATADINE (CLARITIN) 10 MG TAB PO SCH (08:54)
[2018-12-08] MEDS: APIXABAN 5 MG (ELIQUIS) TABLET PO SCH ×2 (08:54→21:03)
[2018-12-08] MEDS: BACLOFEN 10 MG (LIORESAL) TAB PO PRN (13:53)
--- NOTE | 2018-12-08 14:25 | Occ Therapy Progress Note ---
Therapy Progress Note Completed followup with pt at 1405. Pt resting in bed. Right hand has decreased swelling from previous date and pt demonstrates improved ROM and functional use. Pt states he has been icing hand and completing AROM and has been able to use right hand for functional tasks without difficulty. Pt reports completing ADLs independently and has no further questions or concerns at this time. No further skilled OT indicated. D/C OT. 1, visit TAMERA MORALEZ OT Dec 08, 2018 14:25
[2018-12-08] MEDS ORDERED: POLYETHYLENE GLYCOL 17 GM (MIRALAX) PACK PO PRN (18:30)
[2018-12-08] MEDS: ALLOPURINOL 100 MG (ZYLOPRIM) TAB PO SCH (21:03)
[2018-12-08] MEDS: diphenhydrAMINE 25 MG TAB (BENADRYL) PO PRN (22:18)
[2018-12-09 00:01] VITALS: BP 136/66
[2018-12-09] MEDS: diphenhydrAMINE 25 MG TAB (BENADRYL) PO PRN (04:26)
[2018-12-09 04:30] VITALS: BP 123/69
[2018-12-09 05:21] LABS: BASOPHILS % (AUTO) 0 % (0-10); EOSINOPHILS # (AUTO) 0.1 10^3/uL (0.0-0.3); EOSINOPHILS % (AUTO) 1 % (0-10); HEMATOCRIT 39 % (40-54); HEMOGLOBIN 12.9 G/DL (13.3-17.7); LYMPHOCYTES # (AUTO) 2.2 X 10^3 (1.0-4.0); LYMPHOCYTES % (AUTO) 17 % (12-44); MEAN CORPUSCULAR HEMOGLOBIN 29 PG (25-34); MEAN CORPUSCULAR HGB CONC 33 G/DL (32-36); MEAN CORPUSCULAR VOLUME 87 FL (80-99); MEAN PLATELET VOLUME 9.5 FL (7.4-10.4); MONOCYTES # (AUTO) 0.9 X 10^3 (0.0-1.0); MONOCYTES % (AUTO) 7 % (0-12); NEUTROPHILS # (AUTO) 9.5 X 10^3 (1.8-7.8); NEUTROPHILS % (AUTO) 75 % (42-75); PLATELET COUNT 296 10^3/uL (130-400); RED CELL DISTRIBUTION WIDTH 14.3 % (10.0-14.5); WHITE BLOOD COUNT 12.7 10^3/uL (4.3-11.0)
[2018-12-09 05:51] LABS: ALANINE AMINOTRANSFERASE 70 U/L (0-55); ALBUMIN 3.3 GM/DL (3.2-4.5); ALKALINE PHOSPHATASE 66 U/L (40-136); BILIRUBIN,TOTAL 0.4 MG/DL (0.1-1.0); BUN/CREATININE RATIO 19; CALCIUM 9.2 MG/DL (8.5-10.1); CARBON DIOXIDE 24 MMOL/L (21-32); CHLORIDE 109 MMOL/L (98-107); CREATININE SERUM 0.81 MG/DL (0.60-1.30); GFR ESTIMATED > 60; GLUCOSE 70 MG/DL (70-105); POTASSIUM 3.7 MMOL/L (3.6-5.0); SODIUM 141 MMOL/L (135-145)
[2018-12-09] MEDS: predniSONE 20 MG TAB PO SCH (06:29)
[2018-12-09 07:56] VITALS: BP 146/68
--- NOTE | 2018-12-09 09:32 | Discharge Summary ---
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 Gout Plan: Broad spectrum abx DC IVF HL PT/OT Lovenox DC restart Eliquis Repeat right UE USG was reviewed Diagnosis/Problems Diagnosis/Problems (1) Sepsis Status: Acute Qualifiers: Qualified Codes: A41.9 - Sepsis, unspecified organism (2) Fever Status: Acute Qualifiers: Qualified Codes: R50.9 - Fever, unspecified (3) 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 (4) 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 Qualifiers: Qualified Codes: I82.721 - 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 (5) History of DVT of lower extremity Status: Chronic (6) Leukocytosis Status: Acute Qualifiers: Qualified Codes: D72.823 - Leukemoid reaction (7) Gout Status: Chronic Qualifiers: Qualified Codes: M10.9 - Gout, unspecified Discharge Summary Discharge Physical Examination Allergies: Coded Allergies: Penicillins (Verified Allergy, Unknown, HIVES, 11/18/18) cedarwood (Verified Allergy, Unknown, 11/18/18) grass pollen (Verified Allergy, Unknown, 11/18/18) mold (Verified Allergy, Unknown, 11/18/18) unknown Uncoded Allergies: ANETHESIA MED (Allergy, Mild, 06/30/08) Vitals & I&Os Vital Signs Date Time Temp Pulse Resp B/P (MAP) Pulse Ox O2 Delivery O2 Flow Rate FiO2 12/09/18 14:07 36.3 81 18 146/68 98 Room Air General Appearance: Alert, Oriented X3, Cooperative Respiratory: Clear to Auscultation Cardiovascular: Regular Rate Neuro: Normal Gait, Normal Speech, Strength at 5/5 X4 Ext Psych/Mental Status: Mental Status NL Hospital Course Was the Problem List Reviewed?: Yes Hospital course: Pt had an uneventful hospital course, he was admitted with fever, elevated white count and findings consistent with sepsis, he was placed on broad-spectrum antibiotics of Vancomycin and Meropenem due to immunocompromised state due to chemotherapy/immunotherapy for anal melanoma, metastatic type at [facility] last dose was Thursday. His labs remain stable, Pt received aggressive IV fluids and Pt rapidly improved. was contacted, recommended Prednisone of 60 Mg daily and that was continued starting the day after admission. Leukocytosis improved and overall had improved clinical status with PT and OT was able to ambulate, was eating and drinking, bowels moving normally. Pt was found to be ready for discharge, no fever after IV antibiotics stopped the day before discharge and all home meds were restarted and Pt will have close follow-up with me and [facility] will be updated on progress. It was noted that his right arm began swelling a lot more, ultrasound obtained revealed no evidence of DVT brachial vein that was diagnosed three weeks ago, but he will be maintained on oral anticoagulation since that was his second DVT of his life and he is curr ently high risk due to the cancer diagnosis. Labs (last 24 hrs) Laboratory Tests 12/06/18 19:00: White Blood Count 19.2H, Red Blood Count 4.81, Hemoglobin 13.8, Hematocrit 42, Mean Corpuscular Volume 86, Mean Corpuscular Hemoglobin 29, Mean Corpuscular Hemoglobin Concent 33, Red Cell Distribution Width 14.7H, Platelet Count 363, Mean Platelet Volume 9.0, Neutrophils (%) (Auto) 81H, Lymphocytes (%) (Auto) 7L, Monocytes (%) (Auto) 12, Eosinophils (%) (Auto) 0, Basophils (%) (Auto) 0, Neutrophils # (Auto) 15.5H, Lymphocytes # (Auto) 1.4, Monocytes # (Auto) 2.3H, Eosinophils # (Auto) 0.0, Basophils # (Auto) 0.0, Neutrophils % (Manual) 81, Lymphocytes % (Manual) 7, Monocytes % (Manual) 12, Toxic Granulation 1+, Blood Morphology Comment NORMAL, Prothrombin Time 16.8H, INR Comment 1.3, Activated Partial Thromboplast Time 39H, Sodium Level 135, Potassium Level 4.0, Chloride Level 97L, Carbon Dioxide Level 26, Anion Gap 12, Blood Urea Nitrogen 18, Creatinine 0.96, Estimat Glomerular Filtration Rate > 60, BUN/Creatinine Ratio 19, Glucose Level 111H, Lactic Acid Level 1.14, Calcium Level 9.4, Corrected Calcium 9.6, Total Bilirubin 0.9, Aspartate Amino Transf (AST/SGOT) 14, Alanine Aminotransferase (ALT/SGPT) 30, Alkaline Phosphatase 60, Total Creatine Kinase 36, Myoglobin 63.3, Troponin I < 0.028, Total Protein 7.7, Albumin 3.7 12/06/18 20:00: Urine Color YELLOW, Urine Clarity CLEAR, Urine pH 6.5, Urine Specific [place]er 1.020, Urine Protein NEGATIVE, Urine Glucose (UA) NEGATIVE, Urine Ketones NEGATIVE, Urine Nitrite NEGATIVE, Urine Bilirubin NEGATIVE, Urine Urobilinogen NORMAL, Urine Leukocyte Esterase NEGATIVE, Urine RBC (Auto) 3+H, Urine RBC 5-10H , Urine WBC NONE, Urine Crystals NONE, Urine Bacteria NEGATIVE, Urine Casts NONE, Urine Mucus SMALLH, Urine Culture Indicated CULTURE PENDING, Lab Scanned Report Referred Lab Report 12/07/18 04:53: White Blood Count 13.5H, Red Blood Count 4.17L, Hemoglobin 12.0L, Hematocrit 36L , Mean Corpuscular Volume 87, Mean Corpuscular Hemoglobin 29, Mean Corpuscular Hemoglobin Concent 33, Red Cell Distribution Width 14.4, Platelet Count 278, Mean Platelet Volume 9.3, Neutrophils (%) (Auto) 82H, Lymphocytes (%) (Auto) 7L, Monocytes (%) (Auto) 10, Eosinophils (%) (Auto) 1, Basophils (%) (Auto) 0, N eutrophils # (Auto) 11.0H, Lymphocytes # (Auto) 1.0, Monocytes # (Auto) 1.4H, Eosinophils # (Auto) 0.1, Basophils # (Auto) 0.0, Sodium Level 137, Potassium Level 3.9, Chloride Level 106, Carbon Dioxide Level 23, Anion Gap 8, Blood Urea Nitrogen 14, Creatinine 0.74, Estimat Glomerular Filtration Rate > 60, BUN/Creatinine Ratio 19, Glucose Level 105, Calcium Level 8.3L, Corrected Calcium 9.1, Total Bilirubin 1.1H, Aspartate Amino Transf (AST/SGOT) 12, Alanine Aminotransferase (ALT/SGPT) 21, Alkaline Phosphatase 58, Total Protein 5.5L, Albumin 3.0L 12/08/18 07:37: White Blood Count 17.6H, Red Blood Count 4.60, Hemoglobin 12.9L, Hematocrit 40, Mean Corpuscular Volume 87, Mean Corpuscular Hemoglobin 28, Mean Corpuscular Hemoglobin Concent 32, Red Cell Distribution Width 14.4, Platelet Count 305, Mean Platelet Volume 9.4, Neutrophils (%) (Auto) 86H, Lymphocytes (%) (Auto) 8L, Monocytes (%) (Auto) 6, Eosinophils (%) (Auto) 0, Basophils (%) (Auto) 0, Neutro phils # (Auto) 15.1H, Lymphocytes # (Auto) 1.5, Monocytes # (Auto) 1.0, Eosinophils # (Auto) 0.0, Basophils # (Auto) 0.0, Sodium Level 140, Potassium Level 3.8, Chloride Level 108H, Carbon Dioxide Level 24, Anion Gap 8, Blood Urea Nitrogen 13, Creatinine 0.72, Estimat Glomerular Filtration Rate > 60, BUN/Creatinine Ratio 18, Glucose Level 95, Calcium Level 9.1, Corrected Calcium 9.7, Total Bilirubin 0.6, Aspartate Amino Transf (AST/SGOT) 20, Alanine Aminotransferase (ALT/SGPT) 32, Alkaline Phosphatase 69, Total Protein 6.5, Albumin 3.2 12/09/18 05:15: White Blood Count 12.7H, Red Blood Count 4.52, Hemoglobin 12.9L, Hematocrit 39L, Mean Corpuscular Volume 87, Mean Corpuscular Hemoglobin 29, Mean Corpuscular Hemoglobin Concent 33, Red Cell Distribution Width 14.3, Platelet Count 296, Mean Platelet Volume 9.5, Neutrophils (%) (Auto) 75, Lymphocytes (%) (Auto) 17, Monocytes (%) (Auto) 7, Eosinophils (%) (Auto) 1, Basophils (%) (Auto) 0, Neutrophils # (Auto) 9.5H, Lymphocytes # (Auto) 2.2, Monocytes # (Auto) 0.9, Eosinophils # (Auto) 0.1, Basophils # (Auto) 0.0, Sodium Level 141, Potassium Level 3.7, Chloride Level 109H, Carbon Dioxide Level 24, Anion Gap 8, Blood Urea Nitrogen 15, Creatinine 0.81, Estimat Glomerular Filtration Rate > 60, BUN/Creatinine Ratio 19, Glucose Level 70, Calcium Level 9.2, Corrected Calcium 9.8, Total Bilirubin 0.4, Aspartate Amino Transf (AST/SGOT) 48H, Alanine Aminotransferase (ALT/SGPT) 70H, Alkaline Phosphatase 66, Total Protein 6.0L, Albumin 3.3 Microbiology 12/06/18 Blood Culture - Preliminary, Resulted No growth 12/06/18 Influenza Types A,B Antigen (SHELIA) - Final, Complete 12/06/18 Urine Culture - Final, Complete NO GROWTH Pending Labs Microbiology Date/Time Source Procedure Growth Status 12/06/18 19:05 Peripheral Lt Hand Blood Culture - Preliminary No growth Resulted 12/06/18 19:00 Peripheral Lt Ac Blood Culture - Preliminary No growth Resulted 12/06/18 19:22 Nasopharynx Influenza Types A,B Antigen (SHELIA) - Final Complete 12/06/18 20:00 Urine Clean Catch Urine Culture - Final NO GROWTH Complete Laboratory Tests 12/06/18 19:00: White Blood Count 19.2, Red Blood Count 4.81, Hemoglobin 13.8, Hematocrit 42, Mean Corpuscular Volume 86, Mean Corpuscular Hemoglobin 29, Mean Corpuscular Hemoglobin Concent 33, Red Cell Distribution Width 14.7, Platelet Count 363, Mean Platelet Volume 9.0, Neutrophils (%) (Auto) 81, Lymphocytes (%) (Auto) 7, Monocytes (%) (Auto) 12, Eosinophils (%) (Auto) 0, Basophils (%) (Auto) 0, Neutrophils # (Auto) 15.5, Lymphocytes # (Auto) 1.4, Monocytes # (Auto) 2.3, Eosinophils # (Auto) 0.0, Basophils # (Auto) 0.0, Neutrophils % (Manual) 81, Lymphocytes % (Manual) 7, Monocytes % (Manual) 12, Toxic Granulation 1+, Blood Morphology Comment NORMAL, Prothrombin Time 16.8, INR Comment 1.3, Activated Partial Thromboplast Time 39, Sodium Level 135, Potassium Level 4.0, Chloride Level 97, Carbon Dioxide Level 26, Anion Gap 12, Blood Urea Nitrogen 18, Creatinine 0.96, Estimat Glomerular Filtration Rate > 60, BUN/Creatinine Ratio 19, Glucose Level 111, Lactic Acid Level 1.14, Calcium Level 9.4, Corrected Calcium 9.6, Total Bilirubin 0.9, Aspartate Amino Transf (AST/SGOT) 14, Alanine Aminotransferase (ALT/SGPT) 30, Alkaline Phosphatase 60, Total Creatine Kinase 36, Myoglobin 63.3, Troponin I < 0.028, Total Protein 7.7, Albumin 3.7 12/06/18 20:00: Urine Color YELLOW, Urine Clarity CLEAR, Urine pH 6.5, Urine Specific [place] 1.020, Urine Protein NEGATIVE, Urine Glucose (UA) NEGATIVE, Urine Ketones N EGATIVE, Urine Nitrite NEGATIVE, Urine Bilirubin NEGATIVE, Urine Urobilinogen NORMAL, Urine Leukocyte Esterase NEGATIVE, Urine RBC (Auto) 3+, Urine RBC 5-10, Urine WBC NONE, Urine Crystals NONE, Urine Bacteria NEGATIVE, Urine Casts NONE, Urine Mucus SMALL, Urine Culture Indicated CULTURE PENDING, Lab Scanned Report Referred Lab Report 12/07/18 04:53: White Blood Count 13.5, Red Blood Count 4.17, Hemoglobin 12.0, Hematocrit 36, Mean Corpuscular Volume 87, Mean Corpuscular Hemoglobin 29, Mean Corpuscular Hemoglobin Concent 33, Red Cell Distribution Width 14.4, Platelet Count 278, Mean Platelet Volume 9.3, Neutrophils (%) (Auto) 82, Lymphocytes (%) (Auto) 7, Monocytes (%) (Auto) 10, Eosinophils (%) (Auto) 1, Basophils (%) (Auto) 0, Neutrophils # (Auto) 11.0, Lymphocytes # (Auto) 1.0, Monocytes # (Auto) 1.4, Eosinophils # (Auto) 0.1, Basophils # (Auto) 0.0, Sodium Level 137, Potassium Level 3.9, Chloride Level 106, Carbon Dioxide Level 23, Anion Gap 8, Blood Urea Nitrogen 14, Creatinine 0.74, Estimat Glomerular Filtration Rate > 60, BUN/Creatinine Ratio 19, Glucose Level 105, Calcium Level 8.3, Corrected Calcium 9.1, Total Bilirubin 1.1, Aspartate Amino Transf (AST/SGOT) 12, Alanine Aminotransferase (ALT/SGPT) 21, Alkaline Phosphatase 58, Total Protein 5.5, Albumin 3.0 12/08/18 07:37: White Blood Count 17.6, Red Blood Count 4.60, Hemoglobin 12.9, Hematocrit 40, Mean Corpuscular Volume 87, Mean Corpuscular Hemoglobin 28, Mean Corpuscular Hemoglobin Concent 32, Red Cell Distribution Width 14.4, Platelet Count 305, Mean Platelet Volume 9.4, Neutrophils (%) (Auto) 86, Lymphocytes (%) (Auto) 8, Monocytes (%) (Auto) 6, Eosinophils (%) (Auto) 0, Basophils (%) (Auto) 0, Neutrophils # (Auto) 15.1, Lymphocytes # (Auto) 1.5, Monocytes # (Auto) 1.0, Eosinophils # (Auto) 0.0, Basophils # (Auto) 0.0, Sodium Level 140, Potassium Level 3.8, Chloride Level 108, Carbon Dioxide Level 24, Anion Gap 8, Blood Urea Nitrogen 13, Creatinine 0.72, Estimat Glomerular Filtration Rate > 60, BUN/Creatinine Ratio 18, Glucose Level 95, Calcium Level 9.1, Corrected Calcium 9.7, Total Bilirubin 0.6, Aspartate Amino Transf (AST/SGOT) 20, Alanine Aminotransferase (ALT/SGPT) 32, Alkaline Phosphatase 69, Total Protein 6.5, Albumin 3.2 12/09/18 05:15: White Blood Count 12.7, Red Blood Count 4.52, Hemoglobin 12.9, Hematocrit 39, Mean Corpuscular Volume 87, Mean Corpuscular Hemoglobin 29, Mean Corpuscular Hemoglobin Concent 33, Red Cell Distribution Width 14.3, Platelet Count 296, Mean Platelet Volume 9.5, Neutrophils (%) (Auto) 75, Lymphocytes (%) (Auto) 17, Monocytes (%) (Auto) 7, Eosinophils (%) (Auto) 1, Basophils (%) (Auto) 0, Neutrophils # (Auto) 9.5, Lymphocytes # (Auto) 2.2, Monocytes # (Auto) 0.9, Eosinophils # (Auto) 0.1, Basophils # (Auto) 0.0, Sodium Level 141, Potassium Level 3.7, Chloride Level 109, Carbon Dioxide Level 24, Anion Gap 8, Blood Urea Nitrogen 15, Creatinine 0.81, Estimat Glomerular Filtration Rate > 60, BUN/Creatinine Ratio 19, Glucose Level 70, Calcium Level 9.2, Corrected Calcium 9.8, Total Bilirubin 0.4, Aspartate Amino Transf (AST/SGOT) 48, Alanine Aminotransferase (ALT/SGPT) 70, Alkaline Phosphatase 66, Total Protein 6.0, Albumin 3.3 Discharge Home Medications: Active Scripts Active Prednisone 20 Mg Tab 60 Mg PO DAILY@0700 14 Days Reported Eliquis (Apixaban) 5 Mg Tablet 5 Mg PO BID Loratadine 10 Mg Tablet 10 Mg PO DAILY Acetaminophen Extra Strength (Acetaminophen) 500 Mg Tablet 500 Mg PO Q4H PRN Diphenhydramine HCl 25 Mg Tablet 25 Mg PO HS Docusate Sodium 100 Mg Tablet 200 Mg PO HS TAKES 2 (100MG) TABLETS Soothe Xp Eye Drops (Mineral Oil, Light/Mineral Oil) 15 Ml Drops 2 Drops OP HS PRN Allopurinol 100 Mg Tablet 200 Mg PO HS TAKES 2 (100MG) TABLETS Instructions to patient/family Please see electronic discharge instructions given to patient. 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
[2018-12-09] MEDS: DOCUSATE SODIUM 100 MG (COLACE) CAP PO SCH (10:18)
[2018-12-09] MEDS: APIXABAN 5 MG (ELIQUIS) TABLET PO SCH (10:18)
[2018-12-09] MEDS: LORATADINE (CLARITIN) 10 MG TAB PO SCH (10:18)
[2018-12-09] MEDS ORDERED: PRD20T PO (10:25)
--- NOTE | 2018-12-09 11:00 | NUR ---
Important Message from Medicare presented, reviewed, signed and placed in patient chart. Patient voiced no intention to appeal and deny any needs or further questions at this time.
[2018-12-09 14:07] VITALS: BP 146/68
--- NOTE | 2018-12-15 10:43 | Physician Query Clarification ---
PQ-Further Specificity Admission/Discharge Admission Date: Dec 06, 2018 at 20:00 Discharge Date: Dec 09, 2018 at 14:10 The medical record reflects the following clinical scenario: History/Risk Factors: anal CA on immunotherapy, DVT upper extremity Clinical Findings: T38.9, P108, WBC 19.2, H&P states fever and spsis from immunotherapy side effect s. DS states sepsis from immunotherapy no bacterial /viral infection Treatment: IV Vancomycin, IV Meropenem, IV fluids, Prednisone 50 mg Question: Can you further specify if the patient had sepsis from infectious process, adverse reaction from immunotherapy or a complication of immunotherapy treatment per the clinical indicators above? Please document a response in the Progress Notes or Discharge Summary. 1. SIRS (fever, leukocytosis) d/t adverse reaction of immunotherapy 2. Sepsis due to infectious process (please list the infectious process) 3. Sepsis (infection) following immunotherapy infusion 3. Other, with explanation of the clinical findings. 4. Clinically undetermined, no explanation for the clinical findings. PHYSICIAN RESPONSE Can you specify per above: 1 Please remember a lack of response to the above will prompt a phone page by [facility]oding staff. In responding to this query, please exercise your independent professional judgment. The purpose of this communication is to more accurately reflect the complexity of your patients condition. The fact that a question is asked does not imply that any particular answer is desired or expected. Thank you for your timely response to this clarification. Requestors name: Jorge Luis THIS PHYSICIAN QUERY FORM IS A PERMANENT PART OF THE MEDICAL RECORD JORGE LUIS TO Dec 15, 2018 10:43 GIOVANI SHEPPARD DO Dec 15, 2018 11:59
== END 2018-12-09 14:10 | disposition home or self-care (01) | DRG 815 ==
LOC: EDUNIT# 18:43 → ER 18:45 → UNDOADMIN 20:00 → 4TH 20:00
PROVIDERS: ADMIT Internal Medicine; ATTEND Internal Medicine
DX: D72.829 Elevated white blood cell count, unspecified (principal); R50.9 Fever, unspecified; R65.10 Systemic inflammatory response syndrome (SIRS) of non-infectious origin without acute organ dysfunction; T45.1X5A Adverse effect of antineoplastic and immunosuppressive drugs, initial encounter; C43.51 Malignant melanoma of anal skin; E86.0 Dehydration; I82.721 Chronic embolism and thrombosis of deep veins of right upper extremity; M10.9 Gout, unspecified; J30.2 Other seasonal allergic rhinitis; M19.91 Primary osteoarthritis, unspecified site; Z79.01 Long term (current) use of anticoagulants; Z96.653 Presence of artificial knee joint, bilateral
CPT/HCPCS: 36415; 71046; 80053; 81000; 82550; 83605; 83874; 84484; 85007; 85025; 85027; 85610; 85730; 87040; 87088; 87804; 93005; 94760; 96361; 96365; 96367; 96372

== ENCOUNTER → 2019-12-26 | Outpatient (CLI) | payer MEDICARE ==
[~2019-12-26] MED LIST changes: +ACET-168 PO; +PRD20T PO
== END ==
LOC: LABNPT 05:38
DX: Z11.59 Encounter for screening for other viral diseases (principal)
CPT/HCPCS: 87635

== ENCOUNTER → 2019-12-27 | Outpatient (CLI) | payer MEDICARE | LOC: LABNPT 05:14 | DX: Z11.59 Encounter for screening for other viral diseases (principal) | CPT/HCPCS: 87635 ==

== ENCOUNTER 2020-02-15 18:13 | Emergency (ER) | payer MEDICARE ==
[~2020-02-15] VITALS: Ht 180.3 cm; Wt 108.8 kg
--- NOTE | 2020-02-15 19:18 | Diagnostic Imaging Report ---
PROCEDURE: CT head without contrast. TECHNIQUE: Multiple contiguous axial images were obtained through the brain without the use of intravenous contrast. Auto Exposure Controls were utilized during the CT exam to meet ALARA standards for radiation dose reduction. INDICATION: Fall. On anticoagulation. FINDINGS: There are no CT findings of acute intracranial hemorrhage. There is no evidence of an abnormal extra-axial collection. There is no intracranial mass effect or shift. There is no hydrocephalus. There are no findings of territorial loss of cosme-white differentiation or abnormal low density within the basal ganglia or chinmay There is mild age-related global volume loss. There is no CT evidence of a calvarial fracture. There is no fluid within the mastoids. There is minimal mucosal thickening in the left maxillary sinus. No air-fluid levels. The orbital contents appear unremarkable. IMPRESSION: 1. Age-related global volume loss. There are no CT findings of an acute intracranial abnormality. Specifically there are no findings to suggest intracranial hemorrhage. Dictated by: Dictated on workstation # [id number]
--- NOTE | 2020-02-15 19:35 | Diagnostic Imaging Report ---
INDICATION: Fall. Posterior elbow pain. FINDINGS: There is marked soft tissue swelling demonstrated overlying the elbow particularly over the region of the olecranon. Elbow alignment appears unremarkable. There is no significant elevation demonstrated of the elbow fat pads. There is no identified acute fracture. There are, however, some tiny radiodensities projecting on the oblique view within the joint space. These are likely small tissue calcifications. Tiny avulsion is not completely excluded. IMPRESSION: 1. Large degree of posterior soft tissue swelling overlying the olecranon 2. Elbow alignment normal without evidence to suggest elevation of the fat pads 3. No definitive fracture. There are, however, some nonspecific tiny radiodensities projecting within the joint space particularly on the oblique view. Tiny avulsion cannot be completely excluded. It may be reasonable to consider CT of the elbow for further assessment. Dictated by: Dictated on workstation # [id number]
--- NOTE | 2020-02-15 19:54 | ED Fall/Injury ---
General Chief Complaint: Trauma-Non Activation Stated Complaint: FALL/LEFT ELBOW PAIN,SWELLING/HEAD INJ Nursing Triage Note: hit head, hematoma to L elbow Source: patient Exam Limitations: no limitations History of Present Illness Date Seen by Provider: Feb 15, 2020 Time Seen by Provider: 18:35 Initial Comments This 69-year-old gentleman presents to the emergency room for evaluation of injuries sustained when he tripped and fell around 14:00 this afternoon. The fall was mechanical in nature. He tried to catch himself on a table that was only a pedestal table and it fell out from underneath him. He landed on his left elbow. He did lightly strike his head but denies any consciousness. He did feel dizzy afterwards because he "got the wind knocked out of me". He is anticoagulated on Xarelto. He denies any head or neck pain or any symptoms of concussion at present. Has a large swell leg on the posterior elbow suspicious for hematoma. He denies significant pain. Location Injury Occurred: quick stop Allergies and Home Medications Allergies Coded Allergies: Penicillins (Verified Allergy, Unknown, HIVES, 11/18/18) cedarwood (Verified Allergy, Unknown, 11/18/18) grass pollen (Verified Allergy, Unknown, 11/18/18) mold (Verified Allergy, Unknown, 11/18/18) unknown Uncoded Allergies: ANETHESIA MED (Allergy, Mild, 06/30/08) Home Medications Acetaminophen 500 Mg Tablet, 500 MG PO Q4H PRN for PAIN-MILD, (Reported) Allopurinol 100 Mg Tablet, 200 MG PO HS, (Reported) TAKES 2 (100MG) TABLETS Apixaban 5 Mg Tablet, 5 MG PO BID, (Reported) Diphenhydramine HCl 25 Mg Tablet, 25 MG PO HS, (Reported) Docusate Sodium 100 Mg Tablet, 200 MG PO HS, (Reported) TAKES 2 (100MG) TABLETS Loratadine 10 Mg Tablet, 10 MG PO DAILY, (Reported) Mineral Oil, Light/Mineral Oil 15 Ml Drops, 2 DROPS OP HS PRN for DRY EYES, (Reported) Prednisone 20 Mg Tab, 60 MG PO DAILY@0700 Prescribed by: AMI GRAHAM on 12/09/18 1025 Patient Home Medication List Home Medication List Reviewed: Yes Review of Systems Review of Systems Constitutional: no symptoms reported Eyes: No Symptoms Reported Ears, Nose, Mouth, Throat: no symptoms reported Respiratory: no symptoms reported Cardiovascular: no symptoms reported Gastrointestinal: no symptoms reported Genitourinary: decreased output Musculoskeletal: see HPI Skin: see HPI Psychiatric/Neurological: See HPI Past Zssogcm-Lpfgch-Rtryix Hx Past Med/Social Hx: Reviewed Nursing Past Med/Soc Hx Patient Social History Alcohol Use: Denies Use Recreational Drug Use: No 2nd Hand Smoke Exposure: No Recent Foreign Travel: No Contact w/Someone Who Travel: No Recent Hopitalizations: No Immunizations Up To Date Tetanus Booster (TDap): Unknown Date of Pneumonia Vaccine: Feb 01, 2018 Date of Influenza Vaccine: Oct 17, 2018 Seasonal Allergies Seasonal Allergies: Yes Past Medical History Surgeries: Yes (Bilateral Knee Replacement, R ankle repair, bilat bunionectomy) Appendectomy, Joint Replacement, Orthopedic, Tonsillectomy Respiratory: No Currently Using CPAP: No Currently Using BIPAP: No Cardiac: Yes Deep Vein Thrombosis Neurological: No Reproductive Disorders: No Genitourinary: No Gastrointestinal: Yes (rectal bleeding) Musculoskeletal: Yes Arthritis, Fractures, Gout Endocrine: No HEENT: No Cancer: Yes Rectal, Melanoma Did You Recieve Any Treatments: Yes What Type of Treatment Did You: Other Psychosocial: No Integumentary: Yes (recent skin cancer removed from ear) Blood Disorders: No Physical Exam Vital Signs Vital Signs - First Documented 02/15/20 18:35 Temp 36.0 Pulse 82 Resp 18 B/P (MAP) 151/105 (120) Pulse Ox 98 O2 Delivery Room Air Capillary Refill : Height, Weight, BMI Height: 5'11.00" Weight: 240lbs. 0.0oz. [id number]; 31.16 BMI Method:Stated General Appearance: WD/WN, no apparent distress HEENT: PERRL/EOMI, normal ENT inspection Neck: non-tender, normal inspection Cardiovascular: regular rate, rhythm, no edema Respiratory: normal breath sounds, no respiratory distress Extremities: other (Large area of swelling on the posterior elbow. No specific point tenderness. 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, no motor/sensory deficits, alert, normal mood/affect, oriented x 3 Skin: normal color, warm/dry Plush Coma Score Best Eye Response: (4) Open Spontaneously Best Verbal Response: (5) Oriented Best Motor Response: (6) Obeys Commands Lupe Total: 15 Progress/Results/Core Measures Results/Orders My Orders Orders - CYNTHIA KEY MD Elbow, Left, 3 Views (02/15/20 18:40) Ct Head Wo (02/15/20 18:43) Vital Signs/I&O 02/15/20 02/15/20 18:35 20:10 Temp 36.0 36.0 Pulse 82 80 Resp 18 18 B/P (MAP) 151/105 (120) 156/100 (120) Pulse Ox 98 98 O2 Delivery Room Air Room Air Progress Progress Note : Progress Note Patient's age and Xarelto use warranted CT of the head with fall and head injury. CT was unremarkable. X-ray of the left elbow showed significant swelling correlating with exam. There were tiny opacities seen in the joint space on the oblique view. I would expect there to be pain with range of motion in the elbow and rotation of the wrist if these were avulsion fractures. He does not have these physical exam findings. Diagnostic Imaging Diagonstic Imaging: CT Plain Films/CT/US/NM/MRI: head Comments CT head viewed by me and report reviewed. See report below: NAME: RG CAVANAUGH [facility] REC#: [id number] PT STATUS: DEP ER : 1950 PHYSICIAN: CYNTHIA KEY MD ADMIT DATE: 02/15/20/ER Signed Date of Exam:02/15/20 CT HEAD WO \\ PROCEDURE: CT head without contrast. TECHNIQUE: Multiple contiguous axial images were obtained through the brain without the use of intravenous contrast. Auto Exposure Controls were utilized during the CT exam to meet ALARA standards for radiation dose reduction. INDICATION: Fall. On anticoagulation. FINDINGS: There are no CT findings of acute intracranial hemorrhage. There is no evidence of an abnormal extra-axial collection. There is no intracranial mass effect or shift. There is no hydrocephalus. There are no findings of territorial loss of cosme-white differentiation or abnormal low density within the basal ganglia or chinmay There is mild age-related global volume loss. There is no CT evidence of a calvarial fracture. There is no fluid within the mastoids. There is minimal mucosal thickening in the left maxillary sinus. No air-fluid levels. The orbital contents appear unremarkable. IMPRESSION: 1. Age-related global volume loss. There are no CT findings of an acute intracranial abnormality. Specifically there are no findings to suggest intracranial hemorrhage. Dictated by: Dictated on workstation # [id number] Dict: 02/15/201913 Trans: 02/15/202107 [id number] Interpreted by: GRAEME BOSWELL MD Electronically signed by: GRAEME BOSWELL MD 02/15/202107 Diagonstic Imaging: Xray Plain Films/CT/US/NM/MRI: elbow Comments X-ray left elbow viewed by me and report reviewed. See report below: NAME: RG CAVANAUGH [facility] REC#: [id number] PT STATUS: DEP ER : 1950 PHYSICIAN: CYNTHIA KEY MD ADMIT DATE: 02/15/20/ER Signed Date of Exam:02/15/20 ELBOW, LEFT, 3 VIEWS INDICATION: Fall. Posterior elbow pain. FINDINGS: There is marked soft tissue swelling demonstrated overlying the elbow particularly over the region of the olecranon. Elbow alignment appears unremarkable. There is no significant elevation demonstrated of the elbow fat pads. There is no identified acute fracture. There are, however, some tiny radiodensities projecting on the oblique view within the joint space. These are likely small tissue calcifications. Tiny avulsion is not completely excluded. IMPRESSION: 1. Large degree of posterior soft tissue swelling overlying the olecranon 2. Elbow alignment normal without evidence to suggest elevation of the fat pads 3. No definitive fracture. There are, however, some nonspecific tiny radiodensities projecting within the joint space particularly on the oblique view. Tiny avulsion cannot be completely excluded. It may be reasonable to consider CT of the elbow for further assessment. Dictated by: Dictated on workstation # [id number] Dict: 02/15/201924 Trans: 02/15/202107 [facility] [id number] Interpreted by: GRAEME BOSWELL MD Electronically signed by: GRAEME BOSWELL MD 02/15/202107 Departure Impression Primary Impression: Fall on same level from tripping Additional Impressions: Traumatic hematoma of left elbow Qualified Codes: S50.02XA - Contusion of left elbow, initial encounter Anticoagulated Minor closed head injury Disposition: HOME, SELF-CARE Condition: Stable Departure-Patient Inst. Decision time for Depature: 20:00 Referrals: GIOVANI SHEPPARD DO (PCP/Family) Primary Care Physician Patient Instructions: HEMATOMA, Minor Head Injury (DC) Add. Discharge Instructions: Elevation, compressive wrapping, and 20-minute intervals of icing should reduce expansion of the hematoma and help with resolution. Continue your medications as previously prescribed. Return to care if you have worsening symptoms including increasing pain in your elbow or other concerns. All discharge instructions reviewed with patient and/or family. Voiced understanding. Copy Copies To 1: GIOVANI SHEPPARD JOSHUA T MD Feb 15, 2020 19:54
[2020-02-15 20:10] VITALS: BP 156/100
== END 2020-02-15 20:10 | disposition home or self-care (01) ==
LOC: EDUNIT# 18:13 → ER 18:16
DX: S50.02XA Contusion of left elbow, initial encounter (principal); S09.90XA Unspecified injury of head, initial encounter; M10.9 Gout, unspecified; R40.2410 Glasgow coma scale score 13-15, unspecified time; Z88.0 Allergy status to penicillin; Z88.8 Allergy status to other drugs, medicaments and biological substances; Z85.820 Personal history of malignant melanoma of skin; Z86.718 Personal history of other venous thrombosis and embolism; Z79.52 Long term (current) use of systemic steroids; Z79.01 Long term (current) use of anticoagulants; W01.0XXA Fall on same level from slipping, tripping and stumbling without subsequent striking against object, initial encounter
CPT/HCPCS: 70450; 73080

== ENCOUNTER 2020-05-21 16:38 | Observation (INO) | payer MEDICARE ==
[~2020-05-21] VITALS: Ht 180.3 cm; Wt 113.8 kg
[2020-05-21] MEDS ORDERED: diphenhydrAMINE 25 MG TAB (BENADRYL) PO PRN (17:15)
[2020-05-21] MEDS ORDERED: ALPRAZolam 0.25 MG (XANAX) TAB PO PRN (17:15)
[2020-05-21] MEDS ORDERED: HYDROcodone/APAP 5 MG/325 MG (LORTAB) TAB PO PRN (17:15)
[2020-05-21] MEDS ORDERED: DOCUSATE SODIUM 100 MG (COLACE) CAP PO PRN (17:15)
[2020-05-21] MEDS ORDERED: guaiFENesin/CODEINE (ROBITUSSIN AC) 10ML UDC PO PRN (17:15)
[2020-05-21] MEDS ORDERED: ACETAMINOPHEN 500 MG TAB (TYLENOL) PO PRN (17:15)
[2020-05-21] MEDS ORDERED: CALCIUM CARBONATE 500 MG (TUMS) TAB.CHEW PO PRN (17:15)
[2020-05-21] MEDS ORDERED: ONDANSETRON 4 MG/2 ML (SDV) Z0FRAN IVP PRN (17:15)
[2020-05-21] MEDS ORDERED: MELATONIN 3 MG TABLET PO PRN (17:15)
[2020-05-21] MEDS ORDERED: NS IV 1000 ML 1,000 ML IV SCH (17:15)
[2020-05-21] MEDS ORDERED: PATIENT MAY USE OWN MEDS, ALL MC SCH (17:45)
--- NOTE | 2020-05-21 18:06 | Diagnostic Imaging Report ---
REASON FOR EXAM: Fever. Hernia surgery. COMPARISON: 12/30/2019. TECHNIQUE: Two views of the abdomen FINDINGS: The bowel gas pattern is nondistended. No large collection of free intraperitoneal air is seen. A moderate amount of gas and fecal material are present in the colon. No abnormal extraosseous calcifications are present. The osseous structures are age-appropriate. IMPRESSION: Moderate amount of stool in the colon, likely representing constipation. No evidence of bowel obstruction. No free air. Dictated by: Dictated on workstation # [id number]
--- NOTE | 2020-05-21 18:06 | Diagnostic Imaging Report ---
EXAMINATION: Chest 1 view. HISTORY: Fever. COMPARISON: 12/06/2018. FINDINGS: The right hemidiaphragm is elevated. Patchy right basilar opacities are present. Stable mildly prominent cardiac silhouette. No large pleural effusion or pneumothorax. No acute osseous abnormalities. IMPRESSION: 1. Patchy right basilar opacities, which may represent atelectasis or infection. Elevated right hemidiaphragm is noted. 2. Stable mild cardiomegaly. Dictated by: Dictated on workstation # [id number]
[2020-05-21 18:15] VITALS: BP 157/78
[2020-05-21 18:30] VITALS: BP 153/85
[2020-05-21] MEDS: CEFEPIME INJECTION 1,000 MG in WATER (STERILE) FOR INJECTION 10 ML IV SCH ×2 (18:33→23:42)
[2020-05-21] MEDS: NS IV 1000 ML 1,000 ML IV SCH (18:33)
[2020-05-21 18:36] LABS: BILIRUBIN,URINE NEGATIVE (NEGATIVE); COLOR,URINE YELLOW; GLUCOSE, URINE (UA) NEGATIVE (NEGATIVE); KETONES,URINE NEGATIVE (NEGATIVE); LEUKOCYTE ESTERASE ,URINE NEGATIVE (NEGATIVE); NITRITE,URINE NEGATIVE (NEGATIVE); PH,URINE 7.5 (5-9); PROTEIN,URINE NEGATIVE (NEGATIVE)
[2020-05-21 18:42] LABS: BACTERIA,URINE TRACE /HPF; CLARITY,URINE SL CLOUDY; SQUAMOUS EPITHELIAL CELL,UR RARE /HPF; WBC,URINE RARE /HPF
[2020-05-21 18:45] VITALS: BP 164/80
[2020-05-21 18:45] LABS: BASOPHILS # (AUTO) 0.1 10^3/uL (0.0-0.1); BASOPHILS % (AUTO) 1 % (0-10); EOSINOPHILS # (AUTO) 0.1 10^3/uL (0.0-0.3); EOSINOPHILS % (AUTO) 1 % (0-10); HEMATOCRIT 33 % (40-54); HEMOGLOBIN 11.1 g/dL (13.3-17.7); LYMPHOCYTES # (AUTO) 1.1 10^3/uL (1.0-4.0); LYMPHOCYTES % (AUTO) 13 % (12-44); MEAN CORPUSCULAR HEMOGLOBIN 31 pg (25-34); MEAN CORPUSCULAR HGB CONC 34 g/dL (32-36); MEAN CORPUSCULAR VOLUME 92 fL (80-99); MEAN PLATELET VOLUME 10.4 fL (9.0-12.2); MONOCYTES # (AUTO) 0.8 10^3/uL (0.0-1.0); MONOCYTES % (AUTO) 9 % (0-12); NEUTROPHILS # (AUTO) 6.6 10^3/uL (1.8-7.8); NEUTROPHILS % (AUTO) 76 % (42-75); PLATELET COUNT 188 10^3/uL (130-400); WHITE BLOOD COUNT 8.7 10^3/uL (4.3-11.0)
[2020-05-21 19:02] LABS: ALANINE AMINOTRANSFERASE 24 U/L (0-55); ALBUMIN 3.8 GM/DL (3.2-4.5); ALKALINE PHOSPHATASE 57 U/L (40-136); BILIRUBIN,TOTAL 1.5 MG/DL (0.1-1.0); BUN/CREATININE RATIO 17; CALCIUM 8.4 MG/DL (8.5-10.1); CARBON DIOXIDE 23 MMOL/L (21-32); CREATININE SERUM 0.93 MG/DL (0.60-1.30); GFR ESTIMATED > 60; GLUCOSE 105 MG/DL (70-105); TOTAL PROTEIN 6.2 GM/DL (6.4-8.2)
[2020-05-21 19:35] VITALS: BP 177/89
[2020-05-21] MEDS: SENNA W/DOCUSATE (SENOKOT S) TABLET PO SCH (20:04)
[2020-05-21] MEDS ORDERED: LEVO100T7 PO (20:11)
[2020-05-21] MEDS ORDERED: RIVA20TA PO (20:12)
[2020-05-21] MEDS ORDERED: PSYL660P17 PO (20:17)
[2020-05-21 20:28] LABS: CHLORIDE 103 MMOL/L (98-107); POTASSIUM 3.8 MMOL/L (3.6-5.0); SODIUM 134 MMOL/L (135-145)
[2020-05-21] MEDS ORDERED: amLODIPine 5 MG (NORVASC) TAB PO ONE (20:30)
[2020-05-21] MEDS: polyethylene glycoL POWDER 17 GM (MIRALAX) PACK PO SCH (21:56)
[2020-05-21] MEDS: LACTULOSE SYRUP 10GM/15ML (ENULOSE) 30ML UDC PO SCH (21:56)
[2020-05-21 23:34] VITALS: BP 137/81
[2020-05-22] MEDS ORDERED: ACETAMINOPHEN 325 MG TABLET PO PRN (00:15)
[2020-05-22] MEDS: NS IV 1000 ML 1,000 ML IV SCH ×2 (02:06→04:00)
[2020-05-22 04:00] VITALS: BP 121/69
[2020-05-22 05:42] LABS: BASOPHILS % (AUTO) 1 % (0-10); EOSINOPHILS # (AUTO) 0.2 10^3/uL (0.0-0.3); EOSINOPHILS % (AUTO) 3 % (0-10); HEMATOCRIT 32 % (40-54); HEMOGLOBIN 10.5 g/dL (13.3-17.7); LYMPHOCYTES # (AUTO) 1.1 10^3/uL (1.0-4.0); LYMPHOCYTES % (AUTO) 14 % (12-44); MEAN CORPUSCULAR HEMOGLOBIN 31 pg (25-34); MEAN CORPUSCULAR HGB CONC 33 g/dL (32-36); MEAN CORPUSCULAR VOLUME 92 fL (80-99); MONOCYTES # (AUTO) 0.7 10^3/uL (0.0-1.0); MONOCYTES % (AUTO) 10 % (0-12); NEUTROPHILS # (AUTO) 5.7 10^3/uL (1.8-7.8); NEUTROPHILS % (AUTO) 73 % (42-75); PLATELET COUNT 147 10^3/uL (130-400); WHITE BLOOD COUNT 7.8 10^3/uL (4.3-11.0)
[2020-05-22] MEDS: CEFEPIME INJECTION 1,000 MG in WATER (STERILE) FOR INJECTION 10 ML IV SCH ×2 (06:08→12:02)
[2020-05-22 06:17] LABS: ALANINE AMINOTRANSFERASE 23 U/L (0-55); ALBUMIN 3.3 GM/DL (3.2-4.5); ALKALINE PHOSPHATASE 50 U/L (40-136); BILIRUBIN,TOTAL 1.9 MG/DL (0.1-1.0); BUN/CREATININE RATIO 18; CALCIUM 7.9 MG/DL (8.5-10.1); CARBON DIOXIDE 21 MMOL/L (21-32); CHLORIDE 108 MMOL/L (98-107); CREATININE SERUM 0.88 MG/DL (0.60-1.30); GFR ESTIMATED > 60; GLUCOSE 105 MG/DL (70-105); POTASSIUM 3.8 MMOL/L (3.6-5.0); SODIUM 138 MMOL/L (135-145); TOTAL PROTEIN 5.5 GM/DL (6.4-8.2)
[2020-05-22] MEDS ORDERED: LEVOTHYROXINE 100 MCG (LEVOTHROID) TAB PO SCH (06:30)
[2020-05-22 08:00] VITALS: BP 145/66
[2020-05-22] MEDS ORDERED: amLODIPine 5 MG (NORVASC) TAB PO SCH (09:00)
[2020-05-22] MEDS ORDERED: RIVAROXABAN 20 MG TABLET (XARELTO) PO SCH ×2 (09:00→17:00)
[2020-05-22] MEDS: polyethylene glycoL POWDER 17 GM (MIRALAX) PACK PO SCH (09:25)
[2020-05-22] MEDS: SENNA W/DOCUSATE (SENOKOT S) TABLET PO SCH (09:25)
[2020-05-22] MEDS: LACTULOSE SYRUP 10GM/15ML (ENULOSE) 30ML UDC PO SCH (09:25)
[2020-05-22] MEDS ORDERED: ACETAMINOPHEN 500 MG TAB (TYLENOL) PO PRN (09:45)
[2020-05-22] MEDS ORDERED: CEFD300C3 PO (09:47)
--- NOTE | 2020-05-22 10:21 | Short Stay Summary ---
[facility] 05/22/20 1021: History of Present Illness History of Present Illness Reason for visit/HPI Mohit Andersen is a 69 y/o male that was directly admitted from office on 05/21 for a fever of >102. Patient had hernia repair at on 05/18. He had mild abdominal pain located in the area of the hernia repair. Current pain is 5/10. Nothing made the fever better or worse. He is unaware of any associated symptoms. Denies shortness of breath, dysuria, chest pain and calf tenderness at this time. UA was negative. CXR indicated right basilar opacities which may represent atelectasis/infection. Overall he feels improved since admission. He has been urinating and having bowel movements. Tolerating diet. He has been moving around. Mild abdominal spasms. He states "I am ready to go home". Labs and vitals are stable. Date of Admission May 21, 2020 at 17:08 Date of Discharge 05/22/20 Time Seen by Provider: 09:15 Attending Physician Zena Sheppard DO Admitting Physician Zena Sheppard DO Consult Allergies and Home Medications Allergies Coded Allergies: Penicillins (Verified Allergy, Unknown, HIVES, 11/18/18) cedarwood (Verified Allergy, Unknown, 11/18/18) grass pollen (Verified Allergy, Unknown, 11/18/18) mold (Verified Allergy, Unknown, 11/18/18) unknown Uncoded Allergies: ANETHESIA MED (Allergy, Mild, 06/30/08) Home Medications Acetaminophen 500 Mg Tablet, 500 MG PO Q4H PRN for PAIN-MILD, (Reported) Allopurinol 100 Mg Tablet, 100 MG PO HS, (Reported) Cefdinir 300 Mg Capsule, 300 MG PO BID Prescribed by: ZENA SHEPPARD on 05/22/20 0947 Docusate Sodium 100 Mg Tablet, 200 MG PO HS, (Reported) TAKES 2 (100MG) TABLETS Levothyroxine Sodium 100 Mcg Tablet, 100 MCG PO DAILY, (Reported) Mineral Oil, Light/Mineral Oil 15 Ml Drops, 2 DROPS OP HS PRN for DRY EYES, (Reported) Psyllium Husk 660 Gm Powder, 2 TBS PO DAILY, (Reported) Rivaroxaban 20 Mg Tablet, 20 MG PO DAILY, (Reported) Past Bmrshag-Nvevrz-Wylmrc Hx Patient Social History Smoking Status: Never a Smoker 2nd Hand Smoke Exposure: No Recent Hopitalizations: No Alcohol Use?: No Pt feels they are or have been: No Immunizations Up To Date Tetanus Booster (TDap): Unknown Date of Pneumonia Vaccine: Feb 01, 2018 Date of Influenza Vaccine: Oct 21, 2019 Seasonal Allergies Seasonal Allergies: Yes Surgeries Yes (Bilateral Knee Replacement, R ankle repair, bilat bunionectomy) Appendectomy, Joint Replacement, Orthopedic, Tonsillectomy Respiratory No Currently Using CPAP: No Currently Using BIPAP: No Cardiovascular Yes Deep Vein Thrombosis Neurological No Reproductive System Hx Reproductive Disorders: No Genitourinary No Gastrointestinal Yes (rectal bleeding) Musculoskeletal Yes Arthritis, Fractures, Gout Endocrine History of Endocrine Disorders: No HEENT History of HEENT Disorders: No Cancer Yes Rectal, Melanoma Did You Recieve Any Treatments: Yes Type of Treatment: Other Psychosocial History of Psychiatric Problem: No Integumentary History of Skin or Integumenta: Yes (recent skin cancer removed from ear) Blood Transfusions History of Blood Disorders: No Review of Systems Constitutional: no symptoms reported EENTM: no symptoms reported Respiratory: no symptoms reported Cardiovascular: no symptoms reported Gastrointestinal: no symptoms reported Genitourinary: no symptoms reported Musculoskeletal: no symptoms reported Skin: no symptoms reported Psychiatric/Neurological: No Symptoms Reported Physical Exam Vital Signs Vital Signs - First Documented 05/21/20 05/21/20 18:00 18:15 Temp 38.2 Pulse 109 Resp 20 B/P (MAP) 157/78 (104) Pulse Ox 96 O2 Delivery Room Air Capillary Refill : Height, Weight, BMI Height: 5'11.00" Weight: 240lbs. 0.0oz. 108.498770ci; 35.00 BMI Method:Stated General Appearance: No Apparent Distress, WD/WN HEENT: PERRL/EOMI Neck: Full Range of Motion, Non Tender Respiratory: Chest Non Tender, No Accessory Muscle Use, No Respiratory Distress, Crackles (RLL Mild) Cardiovascular: Regular Rate, Rhythm, No Edema, Normal Peripheral Pulses Gastrointestinal: Normal Bowel Sounds, Soft, Tenderness (Mild LLQ) Genital/Rectal: Normal Genital Exam Extremity: Non Tender, No Calf Tenderness Neurologic/Psychiatric: Alert, Oriented x3 Skin: Normal Color, Warm/Dry Lymphatic: No Adenopathy Short Stay Diagnosis Discharge Diagnosis-Short Stay Admission Diagnosis: 1. Fever of unknown origin Final Discharge Diagnosis: 1. Pneumonia 2. Dehydration Conclusion Labs Laboratory Tests 05/21/20 17:52: Urine Color YELLOW, Urine Clarity SL CLOUDY, Urine pH 7.5, Urine Specific Boyd 1.015L, Urine Protein NEGATIVE, Urine Glucose (UA) NEGATIVE, Urine Ketones NEGATIVE, Urine Nitrite NEGATIVE, Urine Bilirubin NEGATIVE, Urine Urobilinogen 0.2, Urine Leukocyte Esterase NEGATIVE, Urine RBC (Auto) 3+H, Urine RBC 10-25H, Urine WBC RARE, Urine Squamous Epithelial Cells RARE, Urine Crystals NONE, Urine Bacteria TRACE, Urine Casts NONE, Urine Mucus SMALLH, Urine Culture Indicated NO 05/21/20 18:30: Lactic Acid Level 0.95 05/21/20 18:36: White Blood Count 8.7, Red Blood Count 3.55L, Hemoglobin 11.1L, Hematocrit 33L, Mean Corpuscular Volume 92, Mean Corpuscular Hemoglobin 31, Mean Corpuscular Hemoglobin Concent 34, Red Cell Distribution Width 12.8, Platelet Count 188, Mean Platelet Volume 10.4, Immature Granulocyte % (Auto) 1, Neutrophils (%) (Auto) 76H, Lymphocytes (%) (Auto) 13, Monocytes (%) (Auto) 9, Eosinophils (%) (Auto) 1, Basophils (%) (Auto) 1, Neutrophils # (Auto) 6.6, Lymphocytes # (Auto) 1.1, Monocytes # (Auto) 0.8, Eosinophils # (Auto) 0.1, Basophils # (Auto) 0.1, Immature Granulocyte # (Auto) 0.1, Sodium Level 134L, Potassium Level 3.8, Chloride Level 103, Carbon Dioxide Level 23, Anion Gap 8, Blood Urea Nitrogen 16, Creatinine 0.93, Estimat Glomerular Filtration Rate > 60, BUN/Creatinine Ratio 17, Glucose Level 105, Calcium Level 8.4L, Corrected Calcium 8.6, Total Bilirubin 1.5H, Aspartate Amino Transf (AST/SGOT) 25, Alanine Aminotransferase (ALT/SGPT) 24, Alkaline Phosphatase 57, Total Protein 6.2L, Albumin 3.8, Procalcitonin 0.04 05/22/20 05:33: White Blood Count 7.8, Red Blood Count 3.42L, Hemoglobin 10.5L, Hematocrit 32L, Mean Corpuscular Volume 92, Mean Corpuscular Hemoglobin 31, Mean Corpuscular Hemoglobin Concent 33, Red Cell Distribution Width 12.8, Platelet Count 147, Mean Platelet Volume 10.0, Immature Granulocyte % (Auto) 1, Neutrophils (%) (Auto) 73, Lymphocytes (%) (Auto) 14, Monocytes (%) (Auto) 10, Eosinophils (%) (Auto) 3, Basophils (%) (Auto) 1, Neutrophils # (Auto) 5.7, Lymphocytes # (Auto) 1.1, Monocytes # (Auto) 0.7, Eosinophils # (Auto) 0.2, Basophils # (Auto) 0.0, Immature Granulocyte # (Auto) 0.1, Sodium Level 138, Potassium Level 3.8, Chloride Level 108H, Carbon Dioxide Level 21, Anion Gap 9, Blood Urea Nitrogen 16, Creatinine 0.88, Estimat Glomerular Filtration Rate > 60, BUN/Creatinine Ratio 18, Glucose Level 105, Calcium Level 7.9L, Corrected Calcium 8.5, Total Bilirubin 1.9H, Aspartate Amino Transf (AST/SGOT) 22, Alanine Aminotransferase (ALT/SGPT) 23, Alkaline Phosphatase 50, Total Protein 5.5L, Albumin 3.3, Procalcitonin 0.06 Microbiology 05/21/20 Influenza Types A,B Antigen (SHELIA) - Final, Complete Conclusion/Plan 1. Continue abx 2. F/u with [facility] 3. F/u with Dr. 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 No abdominal pain reported except soreness of the surgical site but he was noted to be mildly tachypneic so I performed septic w/u and dx early right lower lobe PNA but no evidence of sepsis and no free air on KUB ordered from Dr Lockhart recommendation. Empiric abx initiated. Patient feels good and labs remain stable and will be DC home on PO abx. Date of Admission 05/21/20 Date of Discharge 05/22/20 Time Seen by Provider: 09:30 Allergies and Home Medications Allergies Coded Allergies: Penicillins (Verified Allergy, Unknown, HIVES, 11/18/18) cedarwood (Verified Allergy, Unknown, 11/18/18) grass pollen (Verified Allergy, Unknown, 11/18/18) mold (Verified Allergy, Unknown, 11/18/18) unknown Uncoded Allergies: ANETHESIA MED (Allergy, Mild, 06/30/08) Home Medications Acetaminophen 500 Mg Tablet, 500 MG PO Q4H PRN for PAIN-MILD, (Reported) Allopurinol 100 Mg Tablet, 100 MG PO HS, (Reported) Cefdinir 300 Mg Capsule, 300 MG PO BID Prescribed by: ZENA SHEPPARD on 05/22/20 0947 Docusate Sodium 100 Mg Tablet, 200 MG PO HS, (Reported) TAKES 2 (100MG) TABLETS Levothyroxine Sodium 100 Mcg Tablet, 100 MCG PO DAILY, (Reported) Mineral Oil, Light/Mineral Oil 15 Ml Drops, 2 DROPS OP HS PRN for DRY EYES, (Reported) Psyllium Husk 660 Gm Powder, 2 TBS PO DAILY, (Reported) Rivaroxaban 20 Mg Tablet, 20 MG PO DAILY, (Reported) Patient Home Medication List Home Medication List Reviewed: Yes Past Sfdnuqc-Aqwagw-Aqmnuh Hx Patient Social History Marrital Status: Employed/Student: employed Smoking Status: Never a Smoker Surgeries Orthopedic Respiratory No Cardiovascular Deep Vein Thrombosis, Hypertension Musculoskeletal Chronic Back Pain, Gout Review of Systems Constitutional: see HPI, fever, malaise, weakness Respiratory: cough, short of breath Musculoskeletal: back pain Psychiatric/Neurological: See HPI All Other Systems Reviewed Negative Unless Noted: Yes Physical Exam General Appearance: No Apparent Distress, WD/WN, Chronically ill Eyes: Bilateral Eye Normal Inspection, Bilateral Eye PERRL, Bilateral Eye EOMI HEENT: PERRL/EOMI, Normal ENT Inspection, Pharynx Normal Neck: Full Range of Motion, Normal Inspection, Non Tender, Supple, Carotid Bruit Respiratory: Chest Non Tender, Normal Breath Sounds, No Accessory Muscle Use, No Respiratory Distress, Decreased Breath Sounds Cardiovascular: Regular Rate, Rhythm, No Edema, No Gallop, No JVD, No Murmur, Normal Peripheral Pulses, Tachycardia Gastrointestinal: Normal Bowel Sounds, No Organomegaly, No Pulsatile Mass, Non Tender, Soft Back: Normal Inspection, No CVA Tenderness, No Vertebral Tenderness Extremity: Normal Capillary Refill, Normal Inspection, Normal Range of Motion, Non Tender, No Calf Tenderness, No Pedal Edema Neurologic/Psychiatric: Alert, Oriented x3, No Motor/Sensory Deficits, Normal Mood/Affect Skin: Normal Color, Warm/Dry Lymphatic: No Adenopathy Short Stay Diagnosis Discharge Diagnosis-Short Stay Admission Diagnosis: RLL PNA Recent hernia repair POD # 3 Rectal melanoma on immunomodulator treatment at [facility] Gout h/o DVT x 2 on OAC Final Discharge Diagnosis: RLL PNA Recent hernia repair POD # 3 Rectal melanoma on immunomodulator treatment at [facility] Gout h/o DVT x 2 on OAC Conclusion Conclusion/Plan DC home on PO abx Supervisory-Addendum Brief Verification & Attestation Participated in pt care: history, MDM, physical Personally performed: exam, history, MDM, supervision of care Care discussed with: Medical Student Procedures: n/a Results interpretation: Verified all documentation Verification and Attestation of Medical Student E/M Service A medical student performed and documented this service in my presence. I reviewed and verified all information documented by the medical student and made modifications to such information, when appropriate. I personally performed the physical exam and medical decision making. Zena Sheppard, May 23, 2020,05:30 GAYLA LEVY [facility] May 22, 2020 10:21 ZENA SHEPPARD DO May 23, 2020 05:29
[2020-05-22] MEDS ORDERED: ARTIFICAL TEARS 0.4 ML UNIT DOSE (REFRESH PLUS) OP PRN (10:45)
[2020-05-22 12:00] VITALS: BP 159/79
[2020-05-22] MEDS ORDERED: DOCUSATE SODIUM 100 MG (COLACE) CAP PO SCH (21:00)
[2020-05-22] MEDS ORDERED: ALLOPURINOL 100 MG (ZYLOPRIM) TAB PO SCH (21:00)
[2020-05-23] MEDS ORDERED: LEVOTHYROXINE 100 MCG (LEVOTHROID) TAB PO SCH (09:00)
[2020-05-23] MEDS ORDERED: PSYLLIUM HUSK PO SCH (09:00)
[2020-05-23] MEDS ORDERED: RIVAROXABAN 20 MG TABLET (XARELTO) PO SCH (09:00)
== END 2020-05-22 13:00 | disposition home or self-care (01) ==
LOC: 4TH 17:08
PROVIDERS: ADMIT Internal Medicine; ATTEND Internal Medicine
DX: J18.1 Lobar pneumonia, unspecified organism (principal); I10 Essential (primary) hypertension; I82.409 Acute embolism and thrombosis of unspecified deep veins of unspecified lower extremity; M10.9 Gout, unspecified; C43.51 Malignant melanoma of anal skin; M19.90 Unspecified osteoarthritis, unspecified site; E86.0 Dehydration; Z88.0 Allergy status to penicillin; Z98.890 Other specified postprocedural states; Z90.89 Acquired absence of other organs; Z79.899 Other long term (current) drug therapy; Z88.8 Allergy status to other drugs, medicaments and biological substances; Z91.048 Other nonmedicinal substance allergy status; Z79.890 Hormone replacement therapy
CPT/HCPCS: 71045; 74018; 80053 ×2; 81000; 83605; 84145 ×2; 85025 ×2; 87040; 87070; 87081; 87205; 87804; 93005; G0378; G0379; 36415; 99211

== ENCOUNTER → 2020-05-25 | Outpatient (CLI) | payer MEDICARE ==
[~2020-05-25] MED LIST changes: +CEFD300C3 PO; +LEVO100T7 PO; +PSYL660P17 PO; +RIVA20TA PO
[2020-05-25 18:26] LABS: BILIRUBIN,URINE NEGATIVE (NEGATIVE); CLARITY,URINE CLEAR; COLOR,URINE YELLOW; GLUCOSE, URINE (UA) NEGATIVE (NEGATIVE); KETONES,URINE TRACE (NEGATIVE); LEUKOCYTE ESTERASE ,URINE NEGATIVE (NEGATIVE); NITRITE,URINE NEGATIVE (NEGATIVE); PROTEIN,URINE TRACE (NEGATIVE)
[2020-05-25 18:41] LABS: BACTERIA,URINE TRACE /HPF; WBC,URINE 0-2 /HPF
[2020-05-25 18:42] LABS: AMORPHOUS SEDIMENT,UR RARE AMOR URATES /LPF
== END ==
LOC: LAB 18:06
PROVIDERS: ATTEND Internal Medicine
DX: N39.0 Urinary tract infection, site not specified (principal)
CPT/HCPCS: 81000; 87088

== ENCOUNTER → 2021-12-10 | Outpatient (CLI) | payer MEDICARE ==
--- NOTE | 2021-12-10 17:38 | Diagnostic Imaging Report ---
US SCROTUM (Testicle) [id number] TECHNIQUE: Carrasco-scale, color doppler and spectral duplex imaging of the scrotum and its contents was performed. INDICATION: Hydrocele COMPARISON: None available. FINDINGS: Right: The right testis is normal in size measuring 5.9 x 3.0 x 3.4 cm. It has homogenous echogenicity without mass or microcalcification. Blood flow is present in the right testis by color doppler imaging, and low resistance waveforms are present. The epididymis is normal. No hydrocele or varicole. Left: The left testis is normal in size measuring 4.1 x 2.0 x 2.1 cm. It has homogenous echogenicity without mass or microcalcification. Blood flow is able to be detected within the scrotum by power Doppler imaging. Epididymis is difficult to visualize. A large hydrocele is present. IMPRESSION: 1. Large simple hydrocele on the left. 2. No testicular mass or torsion. Dictated by: Dictated on workstation # [id number]
== END ==
LOC: RAD 13:08
PROVIDERS: ATTEND Internal Medicine
DX: N43.3 Hydrocele, unspecified (principal)
CPT/HCPCS: 76870